=== PATIENT | female | born 1960 | race Caucasian/White ===

== ENCOUNTER 2018-01-21 08:54 | Outpatient (CLI) | payer OTHER ==
--- NOTE | 2018-01-21 13:36 | MRI ---
MRI BRAIN WITH AND WITHOUT IV CONTRAST: HISTORY: Senile degeneration of the brain, not elsewhere classified. FINDINGS: No evidence of infarct, hemorrhage, mass, midline shift, or abnormal extraaxial fluid collections is seen. The ventricular size is appropriate, and the basilar cisterns are patent. No abnormal post co ntrast enhancement is seen. The visualized paranasal sinuses and mastoid air cells are well aerated. IMPRESSION: Normal exam. POS: [facility]
== END 2018-01-21 08:55 | disposition home or self-care (01) ==
LOC: MRI 08:54
PROVIDERS: ATTEND Psychiatry & Neurology Neurology
DX: G31.1 Senile degeneration of brain, not elsewhere classified (principal)
CPT/HCPCS: 70553

== ENCOUNTER 2018-03-23 13:18 | Inpatient (IN) | payer OTHER ==
[2018-03-23 13:37] LABS: #Basophils 0.1 thou/uL (0.0-0.2); #Lymphocytes 3.5 thou/uL (1.20-3.40); #Monocytes 0.8 thou/uL (0.11-0.59); #Neutrophils 7.3 thou/uL (1.40-6.50); %Basophils 1.2 % (0.0-1.0); %Eosinophils 0.4 % (0.0-10.0); %Lymphocytes 29.5 % (21.0-51.0); %Neutrophils 61.8 % (42.0-75.0); Hemoglobin 14.6 g/dL (12.0-16.0); Mean Corpuscular HGB CONC 34.8 g/dL (32.0-36.0); Mean Corpuscular Volume 97.7 fl (81.0-99.0); Mean Platelet Volume 5.5 fL (7.4-10.4); Platelet Count 252 thou/uL (130-400); RBC Distribution Width 11.5 % (11.5-14.5); Red Blood Cell (RBC) Count 4.29 mill/uL (4.20-5.40); White Blood Cell (WBC) Count 11.7 thou/uL (4.8-10.8)
[2018-03-23 13:43] LABS: PTT 27.4 SEC (22.9-36.1); Prothrombin Time 13.4 SEC (12.0-14.7)
[2018-03-23 14:03] LABS: ALT (SGPT) 23 U/L (8-55); AST (SGOT) 23 U/L (5-34); Albumin 4.5 g/dL (3.5-5.0); Alkaline Phosphatase 67 U/L (40-150); Anion Gap 16 mmol/L (10-20); BUN (Urea Nitrogen) 11 mg/dL (9.8-20.1); Bilirubin, Total 0.3 mg/dL (0.2-1.2); Calc. Creatinine Clearance 0 mL/min (70-130); Calcium 9.2 mg/dL (7.8-10.44); Carbon Dioxide 22 mmol/L (22-29); Chloride 103 mmol/L (98-107); Estimated GFR-MDRD 68; Globulin 2.6 g/dL (2.4-3.5); Glucose 132 mg/dL (70-105); Potassium 4.1 mmol/L (3.5-5.1); Protein, Total 7.1 g/dL (6.0-8.3); Sodium 137 mmol/L (136-145)
[2018-03-23 14:06] LABS: Troponin I Less than 0.010 ng/mL (< 0.028)
--- NOTE | 2018-03-23 14:10 | CT ---
CT HEAD NONCONTRAST: HISTORY: Right-sided weakness. Left arm drift. COMPARISON: 03/31/16. FINDINGS: There is no evidence of acute intracranial hemorrhage or infarct. The ventricles appear normal in si ze, shape, and position. There is no mass effect or shift of midline structures. Visualized paranas al sinuses remain well aerated. IMPRESSION: No acute intracranial abnormalities are demonstrated on noncontrast CT head. Findings were called to Dr. Krishna in the emergency department at 1336 hours. CODE CR POS: [facility]
--- NOTE | 2018-03-23 14:22 | CT ---
CT ANGIOGRAM BRAIN WITH IV CONTRAST AND 3D RECONSTRUCTIONS CT ANGIOGRAM NECK WITH IV CONTRAST AND 3D RECONSTRUCTIONS: Date: 03/23/18 HISTORY: Right-sided weakness and slurred speech, as well as facial droop. Left arm drift. Last seen normal at 1145 hours. FINDINGS: CT ANGIOGRAM NECK: Thoracic aortic arch is normal in caliber. There is normal arrangement of the great vessels at the ao rtic arch. The innominate artery, as well as bilateral subclavian arteries are patent. Bilateral comm on carotid arteries, as well as bilateral internal and external carotid arteries are patent. There is only minimal vascular calcification seen involving the most proximal internal carotid arteries bilat erally. There are patent and codominant bilateral vertebral arteries. Basilar artery is patent. Degenerative changes are noted in the spine. Bilateral submandibular and parotid glands have a normal CT appearance. There is partial visualization of median sternotomy wires. The visualized upper lobes are clear. IMPRESSION: 1. Patent bilateral internal carotid arteries. 2. Patent bilateral vertebral arteries. CT ANGIOGRAM BRAIN: The bilateral middle cerebral and anterior cerebral, as well as posterior cerebral arteries are paten t. The codominant distal bilateral vertebral arteries are patent. Basilar artery is patent. There is no focal stenosis or branch occlusion seen. No aneurysm is seen within the limitations of th e technique of this exam. There are minimal vascular calcifications seen in the region of the carotid siphons. IMPRESSION: No focal stenosis or branch occlusion is seen involving the [place] or vertebrobasilar syste m. Above findings discussed with Dr. Krishna in the emergency department on 03/23/18 at 1342 hours. CODE CR. POS: [facility]
[2018-03-23] MEDS ORDERED: ISOVUE-370 76%-LOCM 1 ML ONE (14:37)
[2018-03-23 15:23] LABS: Bilirubin Negative (Negative); Blood, Urine Negative (Negative); Clarity CLEAR (Clear); Glucose, Urine (Dipstick) Negative (Negative); Leukocyte Negative (Negative); Nitrite Negative (Negative); Protein, Urine (Dipstick) Negative (Neg-Trace); Urobilinogen 0.2 mg/dL (0.2-1.0); pH, Urine 7.5 (5.0-9.0)
[2018-03-23] MEDS ORDERED: Ondansetron HCl/PF 4 MG/2 ML Vial SLOW IVP PRN (16:27)
[2018-03-23] MEDS ORDERED: hydrALAZINE 20 MG/ML VIAL SLOW IVP PRN (16:46)
[2018-03-23] MEDS ORDERED: Labetalol HCl 100 MG/20 ML VIAL SLOW IVP PRN (16:47)
[2018-03-23] MEDS: Acetaminophen 1,000 MG in Premix Bag 1 BAG IVPB PRN (17:04)
--- NOTE | 2018-03-23 18:48 | CON ---
DATE OF CONSULTATION: 03/23/2018 SERVICE: Pulmonary Medicine. REASON FOR CONSULTATION: ICU patient. HISTORY OF PRESENT ILLNESS: The patient is a 57-year-old white female with past medical history significant for nothing. She is in her usual state of health when she had an abrupt onset of neurologic changes. She never reports having similar features. She presented to the Emergency Department. She had some left-sided facial droop and left-sided weakness As such, she ended up getting some TPA. She seems to be improving ever so slightly. She denies any current fevers, chills, nausea, vomiting, or chest pain. Otherwise, her vital signs are under good control and she has no specific complaints. She indicates that so she has swallowing her saliva without difficulties. PAST MEDICAL HISTORY: 1. Coronary artery disease. 2. Hypertension. 3. Dyslipidemia. 4. Chronic back pain. 5. Anxiety disorder. PAST SURGICAL HISTORY: 1. Spinal surgery. 2. Coronary bypass graft. 3. Appendectomy. 4. Cholecystectomy. FAMILY HISTORY: Noncontributory. SOCIAL HISTORY: The patient denies any alcohol, tobacco, or illicit drug use. She has no exposure to chemicals, dust asbestos or tuberculosis. REVIEW OF SYSTEMS: General, head, ears, eyes, nose, throat, cardiovascular, respiratory, GI, , musculoskeletal, neurologic and skin is negative except as mentioned in the HPI. ALLERGIES: PENICILLIN, SULFA. MEDICATIONS: List of her inpatient medications were reviewed. No specific updates were made at this time. PHYSICAL EXAMINATION: VITAL SIGNS: Afebrile, pulse 66, blood pressure 132/75, respirations 14, saturation 98% on room air. GENERAL: The patient is awake and alert. She is in no apparent distress. LUNGS: Decent air entry. HEART: Normal rate, regular. ABDOMEN: Soft, nontender, nondistended. Bowel sounds are positive. MUSCULOSKELETAL: No cyanosis or clubbing. There is no pitting in the bilateral lower extremities. NEUROLOGIC: Functional. LABORATORY DATA: WBC 11.7, hemoglobin 14.6, platelets 252,000. INR 1.0. Basic metabolic profile and liver function studies are otherwise unremarkable. Cardiac enzymes are negative. Urinalysis is unremarkable. IMAGING: CTA of the [place] demonstrates patent bilateral internal carotid artery and basilar systems is no focal stenosis or occlusion is identified. CT of the brain demonstrates no acute intracranial abnormality. ASSESSMENT: 1. Spell, status post TPA administration. 2. Coronary artery disease. 3. Hypertension. 4. Dyslipidemia. PLAN: We will continue some of the patient's home medications, but these will need to be on hold until she can pass her swallow evaluation. For the time being, we will give her some IV fluids. She remain in n.p.o. Otherwise, supportive measures will be continued. P.r.n. blood pressure medications will be provided for anything less than 160 given that she is already tolerating, quite comfortably her current blood pressure. Pulmonary will continue to follow while she remains in this location, but from my perspective, she will be stable for transition to the floor tomorrow. 70 minutes have been devoted to this patient in various activities. I personally reviewed all imaging studies and laboratory data noted within this document. For fifty percent of this time, I was interacting with the patient at the bedside or coordinating care with the care team. For the remainder of the time I was immediately available to the patient in the hospital unit. NICKOLAS
[2018-03-23] MEDS ORDERED: [UNRECOGNIZED DRUG - REMARK] FS SCH (19:00)
[2018-03-23 19:47] VITALS: BMI 27.9
[2018-03-23] MEDS: Sodium Chloride 0.45% 1,000 ML IV SCH (20:17)
--- NOTE | 2018-03-23 20:52 | CON ---
DATE OF CONSULTATION: 03/23/2018 REFERRING PROVIDER: Dr. Sherwood. REASON FOR CONSULTATION: Acute left-sided weakness. HISTORY OF PRESENT ILLNESS: Ms. Oviedo is a pleasant 57-year-old female, who has been consu lted for evaluation of acute onset left-sided weakness. The patient reports that around 11:30 a.m. t his morning, she suddenly started noticing left side numbness and weakness. She also noted right fac ial droop. She felt her vision on her left side was dark, which prompted her to present to the [facility] Emergency Room. On arrival here, she was evaluated by ER physician who had immediately called the stroke alert. She had a CT head without contrast and CT angiogram of the head and neck along wit h CT perfusion scan done. The CT angiogram of the head and neck did not show any intracranial or ext racranial vascular abnormality since the perfusion was not done. She met the criteria for IV TPA and she had presented within the window. She was given IV TPA. She reports that her symptoms hav e been improving since being in to the hospital, she feels much better than what she presented with. She denies headache, chest pain, palpitation, numbness, tingling, dysarthria or dysphagia. PAST MEDICAL HISTORY: Significant for hypertension, coronary artery disease, history of atrial fibri llation, hyperlipidemia, chronic back pain, cervical spondylosis. PAST SURGICAL HISTORY: Significant for cardiac ablation in 2009, kidney stone surgery with stent kayy cement, appendectomy, coronary artery bypass graft surgery, cholecystectomy, x1, hernia rep air, hysterectomy, lumbar spine surgery. Otherwise, unremarkable. CURRENT MEDICATIONS: Please review MAR. ALLERGIES: Include PENICILLIN and SULFA DRUGS. FAMILY HISTORY: Noncontributory. SOCIAL HISTORY: She denies smoking, alcohol use, or illicit drug use. REVIEW OF SYSTEMS: As mentioned, which was negative. PHYSICAL EXAMINATION: VITAL SIGNS: Blood pressure 135/76, pulse of 67, temperature of 98.3, respirations of 16, O2 sats of 97% on room air. GENERAL: Well-developed, well-nourished female, in no apparent distress. RESPIRATORY: Clear to auscultation bilaterally. CARDIOVASCULAR: Regular rate and rhythm. NEUROLOGIC: Mental status: The patient is awake, alert, oriented x3. Speech and language: Fluent speech. Cranial nerves: Pupils are 3 mm and reactive. Visual loredo are intact. External muscles are intact. No nystagmus is noted. Face is symmetric. Tongue and uvula midline. Motor exam showed normal tone and bulk with a 5/5 strength in both upper and lower extremities. There is slight givea way weakness on the left upper extremity. She was able to hold her arms outstretched without any dri ft. There was no drift noted in the lower extremities as well. Sensory: Sensation is intact and sy mmetric. Deep tendon reflexes 2+ reflexes in both upper and lower extremities. Babinski: Plantar r esponses flexion bilaterally. Coordination intact to [id number] and finger tapping bilateral ly. LABORATORY DATA: Labs are reviewed, which included CBC, coag panel, CMP, urinalysis, which is signif icant for white cell count of 11.7, otherwise unremarkable. IMAGING STUDIES: CT head without contrast was reviewed, which showed no acute intracranial abnormali ty. CT angiogram of the head and neck were reviewed, which showed no acute intracranial or extracran ial vascular abnormality. IMPRESSION: 1. Left-sided weakness, possible right middle cerebral artery distribution ischemic infarct, status post IV TPA. 2. Hypertension. 3. Coronary artery disease. 4. Hyperlipidemia. ASSESSMENT AND PLAN: Ms. Oviedo is a pleasant 57-year-old female, who presented with an acu te onset left-sided weakness. She is now status post IV TPA. At this time, I would recommend keepin g close monitoring her neurological function over the next 24 hours. I will recommend avoiding any f orm of antiplatelet or anticoagulation therapy at least 24 hours post-TPA. I will recommend obtainin g MRI brain without contrast and echocardiogram in the morning. I will recommend consulting PT, OT, Speech Therapy. She may be started on aspirin 325 mg daily after the 24 hours of post-TPA. Continue current medical management. Thank you for consultation.
[2018-03-23] MEDS: Promethazine HCl 25 MG/ML VIAL SLOW IVP PRN (21:23)
[2018-03-23] MEDS ORDERED: Polyethylene Glycol 3350 17 GM Packet PO PRN (23:50)
[2018-03-23] MEDS ORDERED: Senokot 8.6 MG TAB PO PRN (23:51)
[2018-03-24] MEDS: Promethazine HCl 25 MG/ML VIAL SLOW IVP PRN (02:01)
[2018-03-24] MEDS: Acetaminophen 1,000 MG in Premix Bag 1 BAG IVPB PRN ×2 (02:02→08:31)
[2018-03-24 04:36] LABS: #Basophils 0.1 thou/uL (0.0-0.2); #Eosinphils 0.1 thou/uL (0.0-0.7); #Lymphocytes 4.6 thou/uL (1.20-3.40); #Monocytes 0.9 thou/uL (0.11-0.59); #Neutrophils 4.3 thou/uL (1.40-6.50); %Basophils 0.7 % (0.0-1.0); %Eosinophils 0.8 % (0.0-10.0); %Monocytes 9.3 % (0.0-10.0); %Neutrophils 43.1 % (42.0-75.0); Hemoglobin 13.8 g/dL (12.0-16.0); Mean Corpuscular HGB CONC 34.1 g/dL (32.0-36.0); Mean Corpuscular Hemoglobin 33.6 pg (27.0-31.0); Mean Corpuscular Volume 98.4 fl (81.0-99.0); Mean Platelet Volume 5.8 fL (7.4-10.4); Platelet Count 243 thou/uL (130-400); RBC Distribution Width 11.5 % (11.5-14.5); White Blood Cell (WBC) Count 9.9 thou/uL (4.8-10.8)
[2018-03-24 05:02] LABS: Cardiac Risk 2.8 (Less than 4.5)
[2018-03-24] MEDS: Gabapentin 300 MG CAP PO SCH ×4 (05:12→22:01)
--- NOTE | 2018-03-24 06:38 | HP ---
DATE OF ADMISSION: 03/23/2018 REASON FOR ADMISSION AND CHIEF COMPLAINT: Facial droop and left-sided weakness. HISTORY OF PRESENT ILLNESS: Ms. Oviedo is a 57-year-old female with past medical history of coronary artery disease, status post CABG; hypertension ; anxiety disorder; chronic back pain; atrial fibrillation; started having slurred speech this morning. The patient is unable to get words out and felt weak on the left side as well. She did not have any chest pain or shortness of breath, no headache, nausea, some dizziness. She was in the recliner and managed to pull close to the door and opened it and slid over there and waited for the ambulance after calling them. EMS felt her weakness gotten worse on the way to the hospital. In the ER, the patient felt to have acute ischemic CVA. The patient received tPA and was admitted to the CCU for close monitoring. Currently, the patient's speech is clear, though she still has some left-sided weakness. PAST MEDICAL HISTORY: 1. Hypertension. 2. Coronary artery disease, status post CABG. 3. Anxiety disorder. 4. Chronic back pain. 5. Hyperlipidemia. 6. History of atrial fibrillation. PAST SURGICAL HISTORY: 1. Status post spinal surgery. 2. Status post coronary artery bypass graft. 3. Status post appendectomy. 4. Status post cholecystectomy. CURRENT MEDICATIONS: The patient is on Xanax 0.5 mg t.i.d., aspirin 81 mg daily , vitamin D daily 2000 units, Plavix 75 mg daily, diltiazem 120 mg daily, estradiol 0.5 mg daily, Lasix 40 mg daily, gabapentin 600 mg t.i.d., [place] p.r.n., omeprazole 20 mg b.i.d., MiraLax daily, KCl 10 mEq daily p.r.n., Seroquel 50 mg at bedtime, Ranexa 1000 mg b.i.d., Crestor 20 mg daily, Effexor XR 150 daily. ALLERGIES: NKDA. FAMILY HISTORY: Nothing of interest. SOCIAL HISTORY: pt lives alone. no h/o of smoking and alcohol intake REVIEW OF SYSTEMS: Cardiovascular: No chest pain. No shortness of breath. Respiratory: No fever or cough. Gastrointestinal: No nausea or vomiting. No abdominal pain. Genitourinary: No dysuria or hematuria. Central Nervous System: Has left-sided weakness and facial drooping on the left. PHYSICAL EXAMINATION: GENERAL: The patient is alert, awake, oriented x3. VITAL SIGNS: Temperature 98, pulse 64, respirations 20, blood pressure 120/60. HEENT: Head is normocephalic, atraumatic. Pupils are equal and reactive to light. Nasopharynx is pale and dry. Hard and soft palate, no lesions seen. SKIN: Skin turgor decreased. NECK: Supple. No JVD. LUNGS: Bilateral air entry present. No rales, no rhonchi. HEART: S1, S2 regular. ABDOMEN: Soft, no distention, no tenderness. Normal bowel sounds present. RECTAL: Deferred. CENTRAL NERVOUS SYSTEM: The patient is alert, awake, oriented x3, no evidence of facial droop now. Motor system power 5/5 in the right upper and lower extremities and 4/5 in left upper and lower extremities. Deep tendon reflexes 2 + bilaterally. Plantar downgoing. Sensory intact. LABORATORY AND X-RAY FINDINGS: CBC shows WBC 11.7, hemoglobin 14, hematocrit 42 , platelets 252. Metabolic panel: Sodium 137, potassium 4, chloride 103, CO2 of 22, BUN 11, creatinine 0.86, glucose 132, prothrombin time 13, INR 1. Urinalysis negative. CT of the brain negative. CT angio, neck, as well as [place] unremarkable. EKG showed normal sinus rhythm, no acute ST-T wave changes seen. ASSESSMENT: 1. Left-sided weakness, possible right MCA cerebrovascular accident. 2. Severe anxiety disorder. 3. Hypertension. 4. Coronary artery disease, status post coronary artery bypass graft. 5. Hyperlipidemia. 6. History of depression as well. 7. Chronic back pain. PLAN: 1. Vital signs q.4 hours. 2. Activity as tolerated. 3. Allergies: NKDA. 4. IV fluids: Half normal at 80 mL per hour. 5. Diet: N.p.o. except medicines. 6. Continue home medications. 7. Phenergan 12.5 IVP q.6 hours p.r.n. 8. Neurology consult. 9. MRI of the brain tomorrow. NICKOLAS
[2018-03-24] MEDS ORDERED: Ondansetron HCl/PF 4 MG/2 ML Vial IVP PRN (08:39)
[2018-03-24] MEDS ORDERED: Ondansetron ODT 4 MG TAB SL PRN (08:39)
[2018-03-24] MEDS: Clopidogrel Bisulfate 75 MG TAB PO SCH (08:39)
[2018-03-24] MEDS: Aspirin 81 mg Enteric Coated Tablet PO SCH (08:39)
[2018-03-24] MEDS: Estradiol 1 MG TAB PO SCH (08:44)
[2018-03-24] MEDS: Venlafaxine HCl XR 150 MG CAP PO SCH (08:46)
[2018-03-24] MEDS: ALPRAZolam 0.5 MG TAB PO PRN ×2 (08:46→20:36)
[2018-03-24] MEDS: Sodium Chloride 0.45% 1,000 ML IV SCH (08:52)
[2018-03-24] MEDS: HYDROcodone/Acetaminophen 10/325 mg Tablet PO PRN ×2 (08:54→22:01)
[2018-03-24] MEDS ORDERED: ICOSAPENT ETHYL 2 GM PO SCH ×2 (09:00)
--- NOTE | 2018-03-24 11:04 | PRG ---
DATE OF SERVICE: 03/24/2018 SERVICE: Pulmonary medicine. INTERVAL HISTORY: Patient is doing fine from a respiratory standpoint. Left extremities of upper an d lower extremity is improving in strength. She denies any current chest pain, nausea, vomiting. Raya barnes has no facial droop today. She has yet to be evaluated by Speech Pathology. PHYSICAL EXAMINATION: VITAL SIGNS: Afebrile, pulse 73, blood pressure 141/81, respirations 14, saturation 95% on room air. GENERAL: Patient is awake and alert, no apparent distress. LUNGS: Decent air entry without prolonged expiratory phase, wheezing, rhonchi, or crackles. HEART: Normal rate, regular. ABDOMEN: Soft, nontender, nondistended. Bowel sounds are positive. MUSCULOSKELETAL: No cyanosis or clubbing. No pitting in the bilateral lower extremities. NEUROLOGIC: Less functional today. LABORATORY DATA: WBC 9.9, hemoglobin 13.8, platelets 243,000. Cholesterol includes triglycerides of 150, total cholesterol 124, LDL 45, HDL 44. Urinalysis is unremarkable. ASSESSMENT: 1. Spell, status post TPA. 2. Coronary artery disease. 3. Dyslipidemia. 4. Hypertension. PLAN: We will get the MRI. The patient can transition out of the ICU to the stroke unit. When she goes out to the floor, no further requirements for inpatient Pulmonary or Critical Care opinion, I wi ll sign off. Please call with additional questions or concerns moving forward.
[2018-03-24] MEDS ORDERED: Rosuvastatin 20 MG TAB PO SCH (21:00)
[2018-03-25] MEDS: Gabapentin 300 MG CAP PO SCH ×2 (06:43→14:29)
[2018-03-25] MEDS: ALPRAZolam 0.5 MG TAB PO PRN (08:19)
[2018-03-25] MEDS: Venlafaxine HCl XR 150 MG CAP PO SCH (09:09)
[2018-03-25] MEDS: Estradiol 1 MG TAB PO SCH (09:09)
[2018-03-25] MEDS: Aspirin 81 mg Enteric Coated Tablet PO SCH (09:10)
[2018-03-25] MEDS: Clopidogrel Bisulfate 75 MG TAB PO SCH (09:10)
--- NOTE | 2018-03-25 10:44 | MRI ---
MRI BRAIN WITHOUT CONTRAST: HISTORY: Right-sided weakness. Slurred speech. Facial droop. Left arm drift. COMPARISON: 01/21/2018 FINDINGS: No restricted diffusion is seen. No evidence of infarct, hemorrhage, midline shift, or abnormal extr aaxial fluid collections noted. The ventricular size is normal, and the basilar cisterns are patent. The visualized paranasal sinuses and mastoid air cells are well aerated. IMPRESSION: Normal exam. POS: [facility]
[2018-03-25 16:19] VITALS: BP 121/84; TEMP 98.3
--- NOTE | 2018-03-26 14:00 | DIS ---
DATE OF ADMISSION: 03/23/2018 DATE OF DISCHARGE: 03/25/2018 ADMITTING DIAGNOSES: 1. Left-sided weakness, rule out cerebrovascular accident. 2. Severe anxiety disorder. 3. Hypertension. 4. Coronary artery disease, status post coronary artery bypass graft. 5. Hyperlipidemia. 6. History of depression. 7. Chronic back pain. FINAL DIAGNOSES: 1. Left-sided weakness, markedly resolved. No evidence of cerebrovascular accident. MRI of the bra in was normal. 2. Severe anxiety disorder. 3. Hypertension. 4. Coronary artery disease, status post coronary artery bypass graft. 5. Hyperlipidemia. 6. History of depression. 7. Chronic back pain. There is no previous history of atrial fibrillation as per the records. BRIEF SUMMARY OF HOSPITAL COURSE: Ms. Oviedo is a 57-year-old, female admitted because of s udden onset of left-sided weakness. The patient initially was given TPA and thought to have acute st roke. The patient's weakness completely resolved the following day. Initial CT scan was negative. The patient was seen by Dr. Feng for Neurology suggested an MRI of the brain to evaluate if there is any stroke. The patient underwent an MRI. MRI showed no evidence of any infarction or hemorrhage. It was normal. Her neurologist said the patient did not have a CVA at all. It could be anxiety diso rder with conversion reaction, which resulted in her left-sided weakness and this got resolved comple tely. The patient is ambulating well now, back to herself, and the patient also did not have atrial fibrillation according to the previous record and according to the patient, it was mentioned by [facility] admission record. The patient is discharged. At the time of discharge, she was stable. Her piper l signs were stable. Lungs were clear. Heart sounds regular. Abdomen is soft, nontender. Bowel so unds present. DISCHARGE MEDICATIONS: Include Crestor 20 mg daily, Ranexa 1000 mg b.i.d., mg b.i.d., Xanax 0 .5 t.i.d., Seroquel 50 mg at bedtime, gabapentin 600 q.8 hours, aspirin 81 mg, daily, estradiol 0.5 mg daily, MiraLax 17 grams daily, omeprazole 20 mg b.i.d., promethazine 25 mg p.o. daily p.r.n., vitamin D 2000 units daily, Effexor XR 150 mg daily, Lasix 40 mg daily, [place] p.r.n., Plavix 75 mg d aily, diltiazem 120 mg daily, Imdur 30 mg daily, spironolactone 25 mg daily, levothyroxine 50 mcg paresh ly. FOLLOWUP: The patient will come for a followup in 2 weeks.
== END 2018-03-25 17:12 | disposition home or self-care (01) | DRG 62 ==
LOC: ERS 13:18 → CCU 14:15 → 2SE 03-24 15:32
PROVIDERS: ADMIT Internal Medicine; ATTEND Internal Medicine
DX: I63.9 Cerebral infarction, unspecified (principal); G81.94 Hemiplegia, unspecified affecting left nondominant side; F41.9 Anxiety disorder, unspecified; I10 Essential (primary) hypertension; I25.10 Atherosclerotic heart disease of native coronary artery without angina pectoris; E78.5 Hyperlipidemia, unspecified; F32.9 Major depressive disorder, single episode, unspecified; Z95.1 Presence of aortocoronary bypass graft; M54.9 Dorsalgia, unspecified; G89.29 Other chronic pain; M47.892 Other spondylosis, cervical region; Z90.49 Acquired absence of other specified parts of digestive tract; Z90.710 Acquired absence of both cervix and uterus
CPT/HCPCS: 36415; 70450; 70496; 70498; 70551; 80053; 80061; 81003; 82553; 84484; 85025; 85610; 85730; 93005; 94760; 96365; 99292; G8978-GP-CK; G8979-GP-CI; G8987-GO-CI; G8988-GO-CI; G8989-GO-CI; G8996-GN-CH; G8997-GN-CH; J0131; J2550; J2997; J3490; Q0162

== ENCOUNTER 2019-03-21 02:01 | Observation (INO) | payer OTHER ==
[2019-03-21] MEDS ORDERED: Nitroglycerin 0.4 MG TAB (25 Tab Bottle) ONE (02:28)
[2019-03-21 02:30] LABS: #Basophils 0.1 thou/uL (0.0-0.2); #Eosinphils 0.1 thou/uL (0.0-0.7); #Lymphocytes 4.1 thou/uL (1.20-3.40); #Monocytes 0.8 thou/uL (0.11-0.59); #Neutrophils 4.5 thou/uL (1.40-6.50); %Basophils 1.1 % (0.0-1.0); %Eosinophils 1.1 % (0.0-10.0); %Neutrophils 46.7 % (42.0-75.0); Hemoglobin 13.3 g/dL (12.0-16.0); Mean Corpuscular HGB CONC 32.4 g/dL (32.0-36.0); Mean Platelet Volume 5.2 fL (7.4-10.4); Platelet Count 246 thou/uL (130-400); RBC Distribution Width 11.8 % (11.5-14.5); Red Blood Cell (RBC) Count 4.04 mill/uL (4.20-5.40); White Blood Cell (WBC) Count 9.6 thou/uL (4.8-10.8)
[2019-03-21] MEDS ORDERED: Fentanyl 100 MCG/2 ML VIAL ONE (02:37)
[2019-03-21 02:44] LABS: ALT (SGPT) 10 U/L (8-55); AST (SGOT) 11 U/L (5-34); Albumin 4.2 g/dL (3.5-5.0); Alkaline Phosphatase 56 U/L (40-150); Anion Gap 13 mmol/L (10-20); BUN (Urea Nitrogen) 12 mg/dL (9.8-20.1); Bilirubin, Total 0.3 mg/dL (0.2-1.2); CK (CPK) 101 U/L (29-168); Calc. Creatinine Clearance 0 mL/min (70-130); Calcium 9.1 mg/dL (7.8-10.44); Carbon Dioxide 25 mmol/L (22-29); Chloride 107 mmol/L (98-107); Estimated GFR-MDRD 68; Globulin 2.4 g/dL (2.4-3.5); Glucose 122 mg/dL (70-105); Lipase 27 U/L (8-78); Potassium 3.5 mmol/L (3.5-5.1); Protein, Total 6.6 g/dL (6.0-8.3); Sodium 141 mmol/L (136-145)
[2019-03-21] MEDS ORDERED: Ondansetron PF 4 MG/2 ML Vial ONE (02:44)
[2019-03-21] MEDS ORDERED: Aspirin Chewable 81 MG TAB ONE (04:39)
[2019-03-21 06:12] VITALS: BMI 29.9
[2019-03-21 06:49] LABS: Troponin I Less than 0.010 ng/mL (< 0.028)
[2019-03-21 08:06] VITALS: BP 107/60; TEMP 98.4
[2019-03-21 08:43] LABS: Troponin I Less than 0.010 ng/mL (< 0.028)
--- NOTE | 2019-03-21 08:47 | CT ---
CTA chest with contrast with 3-D volume rendering CTA abdomen/pelvis with contrast with 3-D volume rendering FINDINGS/IMPRESSION: Final report is in agreement with preliminary interpretation provided above. No evidence of acute aortic aneurysm or dissection.
--- NOTE | 2019-03-21 08:57 | RAD ---
Exam: Chest one view HISTORY:Pain Comparison: 05/23/2017 FINDINGS: Lungs: No new consolidation. Stable appearing Cardiac silhouette:Stable Pulmonary vessels: Normal Pleural Spaces: Clear Pneumothorax: None Osseous abnormalities: None of acuity. IMPRESSION: Stable chest
[2019-03-21] MEDS ORDERED: ADENOSINE 60 MG/20 ML VIAL ONE (09:44)
--- NOTE | 2019-03-21 13:50 | NM ---
Nuclear medicine myocardial perfusion evaluation CLINICAL HISTORY: Chest pain Right pharmaceutical: 27 mCi and 10 mCi technetium 99 M sestamibi IV administered at stress and rest FINDINGS: No significant fixed or reversible scintigraphic defects of the left ventricular garay are identified. Evaluation of the gated imaging reveals wall motion and contractility with a calculated LVEF of 75%. IMPRESSION: Normal myocardial perfusion evaluation, without evidence of ischemia or scar. Normal left ventricular systolic function.
[2019-03-21] MEDS ORDERED: Gabapentin 300 MG CAP PO SCH (15:00)
[2019-03-21] MEDS ORDERED: ICOSAPENT 2 GM PO SCH (17:00)
[2019-03-21] MEDS ORDERED: Donepezil HCl 10 MG TAB PO SCH (21:00)
[2019-03-21] MEDS ORDERED: busPIRone HCl 10 MG TAB PO SCH (21:00)
[2019-03-21] MEDS ORDERED: Rosuvastatin 20 MG TAB PO SCH (21:00)
[2019-03-22] MEDS ORDERED: Levothyroxine Sodium 50 MCG TAB PO SCH (06:00)
[2019-03-22] MEDS ORDERED: Spironolactone 25 MG TAB PO SCH (08:00)
[2019-03-22] MEDS ORDERED: DULoxetine 60 MG CAP PO SCH (09:00)
[2019-03-22] MEDS ORDERED: Famotidine 20 MG TAB PO SCH (09:00)
[2019-03-22] MEDS ORDERED: Furosemide 40 MG TAB PO SCH (09:00)
[2019-03-22] MEDS ORDERED: Estradiol 1 MG TAB PO SCH (09:00)
--- NOTE | 2019-03-22 09:16 | HP ---
CHIEF COMPLAINT: Chest pain. HISTORY OF PRESENT ILLNESS: Ms. Oviedo is a 58-year-old female with past medical history of coronary artery disease, anxiety disorder, who came to the ER with chest pain, woke up in the night because of chest pressure as well as racing heart, she did not have any dizziness or diaphoresis and she did have some shortness of breath and nausea. The pain lasted until she came to the ER, where she was given fentanyl after which the pain got relieved. In view of her risk factors, the patient is being admitted to rule out myocardial infarction. Did not have any headache, dizziness. No fever. PAST MEDICAL HISTORY: 1. Hypertension. 2. Coronary artery disease, status post CABG. 3. Anxiety disorder. 4. Chronic back pain. 5. Hyperlipidemia. 6. History of atrial fibrillation. PAST SURGICAL HISTORY: 1. Status post coronary artery bypass graft. 2. Status post spinal surgery. 3. Status post appendectomy. 4. Status post cholecystectomy. CURRENT MEDICATIONS: The patient is on; 1. BuSpar 10 mg b.i.d. 2. Diltiazem 180 mg daily. 3. Aricept 10 mg daily. 4. Cymbalta 60 mg daily. 5. Estradiol 0.5 mg daily. 6. Pepcid 20 mg daily. 7. Lasix 40 mg daily. 8. Gabapentin 600 mg t.i.d. 9. Imdur 30 mg daily. 10. Levothyroxine 50 mcg daily. 11. Vascepa b.i.d. 2 g. 12. Seroquel 50 b.i.d. 13. Ranexa 1000 mg b.i.d. 14. Crestor 20 mg daily. 15. Spironolactone 25 mg daily. ALLERGIES: NKDA. FAMILY HISTORY: Nothing contributory. SOCIAL HISTORY: The patient lives with daughter. No history of smoking. No history of alcohol. REVIEW OF SYSTEMS: CARDIOVASCULAR: Chest pain. Shortness of breath. RESPIRATORY: No fever or cough. GASTROINTESTINAL: Has nausea. No vomiting. CENTRAL NERVOUS SYSTEM: No headache. No dizziness. PHYSICAL EXAMINATION: GENERAL: The patient is alert, awake, and oriented x3. VITAL SIGNS: Temperature 98, pulse 75, respiratory rate 20, and blood pressure 110/60. HEENT: Head is normocephalic and atraumatic. Pupils are equal and reactive. Nasopharynx is pale and dry. Hard and soft palate. No lesions. SKIN: Turgor decreased. NECK: Supple. No JVD. LUNGS: Bilateral air entry with no rales and no rhonchi. HEART: S1 and S2, regular. ABDOMEN: Soft. No distention. No tenderness. Normal bowel sounds. RECTAL: No symptoms. CENTRAL NERVOUS SYSTEM: No focal deficit. LABORATORY DATA: CBC shows WBC 9.6, hemoglobin 13, hematocrit 41, platelets are 246. Metabolic panel; sodium 140, potassium 3.5, chloride 107, C02 26, creatinine 0.8, glucose 122. Chest x-ray negative. CT dissection protocol was negative. EKG, normal sinus rhythm, no acute ST-T changes seen. ASSESSMENT: 1. Chest pain, rule out myocardial infarction. 2. Hypertension. 3. Coronary artery disease, status post coronary artery bypass graft. 4. Anxiety disorder. 5. Chronic pain. 6. Hyperlipidemia. PLAN: 1. Vital signs q.4 hours. 2. Activity as tolerated. 3. Allergies: NKDA. 4. Hep-Lock. 5. Troponin q.8 hours x2. 6. Continue home medications. 7. We will obtain a stress test. Job ID: [id number]
--- NOTE | 2019-03-22 13:42 | DIS ---
DATE OF ADMISSION: 03/21/2019 DATE OF DISCHARGE: 03/21/2019 ADMITTING DIAGNOSES: 1. Chest pain, rule out myocardial infarction. 2. Hypertension. 3. Coronary artery disease, status post coronary artery bypass graft. 4. Hyperlipidemia. 5. Anxiety disorder. 6. Chronic pain. FINAL DIAGNOSES: 1. Chest pain. No evidence of acute myocardial infarction. Negative Cardiolite stress test. 2. Hypertension. 3. Coronary artery disease, status post coronary artery bypass graft. 4. Hyperlipidemia. 5. Chronic pain. 6. Anxiety disorder. BRIEF SUMMARY OF HOSPITAL COURSE: Ms. Oviedo is a 58-year-old female admitted because of chest pressure, nausea, and shortness of breath. The patient was admitted to rule out myocardial infarction. In view of her risk factors, the patient had a troponin I drawn which was less than 0.010. She underwent Cardiolite stress test and reported a negative for ischemia. The patient's chest pain also completely resolved while in the hospital. In view of that, the patient is being discharged to home. At the time of discharge, she was stable and vitals signs are stable. Lungs clear. Heart sounds are regular. Abdomen is soft. No tenderness. Bowel sounds present. DISCHARGE MEDICATIONS: Include, 1. Rosuvastatin which is Crestor 20 mg daily. 2. Ranexa 1000 mg b.i.d. 3. Seroquel 50 b.i.d. 4. Gabapentin 600 t.i.d. 5. Estradiol 0.5 mg daily. 6. Lasix 40 mg daily. 7. Imdur 30 mg daily. 8. Spironolactone 25 mg daily. 9. Levothyroxine 50 mcg daily. 10. Ranitidine 150 daily. 11. Aricept 10 mg daily. 12. vascepa 1 gm b.i.d. 13. Cymbalta 60 mg daily. 14. BuSpar 10 mg b.i.d. 15. Diltiazem 180 daily. FOLLOWUP: The patient will come for followup in 3 weeks. Job ID: [id number] MTDD
== END 2019-03-21 15:57 | disposition home or self-care (01) ==
LOC: SCSER 02:01 → 2SW 05:31
PROVIDERS: ADMIT Internal Medicine; ATTEND Internal Medicine
DX: R07.89 Other chest pain (principal); I25.10 Atherosclerotic heart disease of native coronary artery without angina pectoris; F41.9 Anxiety disorder, unspecified; I10 Essential (primary) hypertension; G89.29 Other chronic pain; M54.9 Dorsalgia, unspecified; E78.5 Hyperlipidemia, unspecified; I48.91 Unspecified atrial fibrillation; Z79.899 Other long term (current) drug therapy; Z88.0 Allergy status to penicillin; Z88.2 Allergy status to sulfonamides; Z95.1 Presence of aortocoronary bypass graft
CPT/HCPCS: 36415; 71045; 71275; 78452; 80053; 82550; 83690; 84484; 85025; 93005; 93017; 96374; 96375; A9500; J0153; J2405; J3010

== ENCOUNTER 2019-07-01 12:27 | Observation (INO) | payer OTHER ==
[2019-07-01 14:04] LABS: #Basophils 0.1 thou/uL (0.0-0.2); #Eosinphils 0.1 thou/uL (0.0-0.7); #Lymphocytes 3.4 thou/uL (1.20-3.40); #Monocytes 0.7 thou/uL (0.11-0.59); %Basophils 1.7 % (0.0-1.0); %Eosinophils 0.7 % (0.0-10.0); %Lymphocytes 40.9 % (21.0-51.0); %Monocytes 7.9 % (0.0-10.0); %Neutrophils 48.8 % (42.0-75.0); Hemoglobin 11.5 g/dL (12.0-16.0); Mean Corpuscular HGB CONC 34.8 g/dL (32.0-36.0); Mean Corpuscular Hemoglobin 36.3 pg (27.0-31.0); Platelet Count 259 thou/uL (130-400); RBC Distribution Width 11.1 % (11.5-14.5); Red Blood Cell (RBC) Count 3.17 mill/uL (4.20-5.40); White Blood Cell (WBC) Count 8.3 thou/uL (4.8-10.8)
--- NOTE | 2019-07-01 14:15 | RAD ---
PORTABLE CHEST: Date: 07/01/19 HISTORY: Chest pain. COMPARISON: 03/21/19. FINDINGS: Heart size within normal limits for portable technique with postop sternotomy changes. The aorta is t ortuous. The lungs are clear of infiltrates. IMPRESSION: No active intrathoracic disease. Stable chest. POS: [facility]
[2019-07-01 14:19] LABS: ALT (SGPT) 8 U/L (8-55); AST (SGOT) 11 U/L (5-34); Albumin 3.7 g/dL (3.5-5.0); Alkaline Phosphatase 45 U/L (40-150); Anion Gap 8 mmol/L (10-20); BUN (Urea Nitrogen) 8 mg/dL (9.8-20.1); Bilirubin, Total 0.3 mg/dL (0.2-1.2); Calc. Creatinine Clearance 0 mL/min (70-130); Calcium 8.1 mg/dL (7.8-10.44); Carbon Dioxide 25 mmol/L (22-29); Chloride 111 mmol/L (98-107); Estimated GFR-MDRD 77; Globulin 1.9 g/dL (2.4-3.5); Glucose 106 mg/dL (70-105); Lipase 16 U/L (8-78); Potassium 4.3 mmol/L (3.5-5.1); Protein, Total 5.6 g/dL (6.0-8.3); Sodium 140 mmol/L (136-145)
[2019-07-01 17:27] LABS: Troponin I Less than 0.010 ng/mL (< 0.028)
[2019-07-01 18:57] VITALS: BMI 33.6
[2019-07-01 21:17] LABS: Troponin I Less than 0.010 ng/mL (< 0.028)
[2019-07-01] MEDS ORDERED: Nitroglycerin 0.4 MG TAB (25 Tab Bottle) SL PRN (22:27)
[2019-07-01] MEDS ORDERED: Melatonin 3 MG TAB PO PRN (22:28)
[2019-07-01] MEDS ORDERED: busPIRone HCl 10 MG TAB PO SCH (23:00)
[2019-07-01] MEDS ORDERED: Gabapentin 300 MG CAP PO SCH (23:00)
[2019-07-01] MEDS ORDERED: Donepezil HCl 10 MG TAB PO SCH (23:00)
[2019-07-01] MEDS ORDERED: Rosuvastatin 20 MG TAB PO SCH (23:00)
[2019-07-02] MEDS: Levothyroxine Sodium 50 MCG TAB PO SCH (06:56)
--- NOTE | 2019-07-02 08:14 | HP ---
CHIEF COMPLAINT: Chest pain and irregular heartbeat, and skipped beats. HISTORY OF PRESENT ILLNESS: Ms. Oviedo is a 59-year-old female with past medical history of coronary artery disease, status post CABG, came with chest pain and skipped beats. The patient states she noted having some chest pain and shortness of breath and her heart beat was skipping. She did not have any dizziness. No nausea, or vomiting. No headache. No syncope. Despite her taking rest, arrhythmia did not resolve. Chest pain also did not resolve. The pain is more like tightness and heaviness that radiates to left shoulder and left side. EMS was called. EMS found the patient with chest pain, gave nitroglycerin. The patient became hypotensive. Chest pain improved. In the ER, the patient was evaluated. She was given IV fluid bolus because of hypotension initially, which was 79/50, but improved to 100/60. The patient is admitted for further evaluation and management. PAST MEDICAL HISTORY: 1. Coronary artery disease, status post CABG. 2. Hypertension. 3. Hyperlipidemia. 4. Anxiety disorder. 5. Chronic back pain. 6. History of atrial fibrillation. PAST SURGICAL HISTORY: 1. Status post CABG. 2. Status post ablation for atrial flutter. 3. Status post spinal surgery. 4. Status post appendectomy. 5. Status post cholecystectomy. CURRENT MEDICATIONS: The patient is on; 1. Nitroglycerin p.r.n. 2. Aspirin 81 mg daily. 3. Melatonin 5 mg at bedtime p.r.n. 4. Plavix 75 mg daily. 5. Seroquel 50 mg b.i.d. 6. Estradiol 0.5 daily. 7. Lasix 40 mg daily. 8. BuSpar 15 b.i.d. 9. Ranexa 1000 b.i.d. 10. Vascepa 2 mg b.i.d. 11. Gabapentin 600 mg t.i.d. 12. Cymbalta 60 mg daily. 13. Levothyroxine 50 mcg daily. 14. Aricept 10 mg daily. 15. Spironolactone 25 mg daily. 16. Isosorbide mononitrate 30 mg daily. 17. Diltiazem 180 mg daily. ALLERGIES: PENICILLIN AND SULFA. FAMILY HISTORY: Nothing contributory. SOCIAL HISTORY: The patient lives with daughter. No history of smoking. No history of alcohol. REVIEW OF SYSTEMS: Unremarkable except for chest tightness and irregular heartbeat. PHYSICAL EXAMINATION: VITAL SIGNS: Temperature 98, pulse HEENT: Head is normocephalic and atraumatic. Pupils are equal and reactive. Nasopharynx is pale and dry. Hard and soft palate. No lesions. SKIN: Turgor decreased. NECK: Supple. No JVD. LUNGS: Bilateral air entry. No rales. No rhonchi. HEART: S1 and S2 regular. ABDOMEN: Soft. No distention. No tenderness. Normal bowel sounds present. CENTRAL NERVOUS SYSTEM: No focal deficits. EXTREMITIES: No edema. LABORATORY DATA: CBC shows WBC 8.3, hemoglobin 11, hematocrit 33, platelets 259. Metabolic panel; sodium 140, potassium 4.3, chloride 111, CO2 25, BUN 8, creatinine 0.7, glucose 106. Troponin-I was less than 0.010. EKG showed atrial fibrillation with a heart rate of 60. No acute ST-T wave changes. Chest x-ray negative. ASSESSMENT: 1. Chest pain and tightness, rule out myocardial infarction. 2. Atrial fibrillation, paroxysmal. 3. Hypertension. 4. Coronary artery disease, status post coronary artery bypass grafting. 5. Hyperlipidemia. 6. Anxiety disorder. PLAN: 1. Vital signs q.4 hours. 2. Activities as tolerated. 3. Allergies to penicillin and sulfa. 4. Hep-Lock. 5. Diet: Cardiac. 6. Continue home medications. 7. Troponin-I q.6 hours x2. 8. Cardiology consult. Job ID: [id number] MTDD
[2019-07-02] MEDS ORDERED: Clopidogrel Bisulfate 75 MG TAB PO SCH (09:00)
[2019-07-02] MEDS: Estradiol 1 MG TAB PO SCH (10:11)
[2019-07-02] MEDS: Gabapentin 300 MG CAP PO SCH ×2 (10:11→16:35)
[2019-07-02] MEDS: Famotidine 20 MG TAB PO SCH (10:12)
[2019-07-02] MEDS: busPIRone HCl 10 MG TAB PO SCH ×2 (10:13→20:13)
[2019-07-02] MEDS: Aspirin 81 mg Enteric Coated Tablet PO SCH (10:14)
[2019-07-02] MEDS: Furosemide 40 MG TAB PO SCH (10:14)
[2019-07-02] MEDS: DULoxetine 60 MG CAP PO SCH (10:14)
[2019-07-02] MEDS: Spironolactone 25 MG TAB PO SCH (10:14)
[2019-07-02] MEDS ORDERED: Apixaban 5 MG TAB PO SCH ×2 (16:15→21:00)
[2019-07-02] MEDS: ICOSAPENT ETHYL (VASCEPA) PO SCH ×4 (17:58→20:15)
--- NOTE | 2019-07-02 18:45 | CON ---
DATE OF CONSULTATION: 07/02/2019 REASON FOR CONSULTATION: Chest pain and atrial fibrillation. HISTORY OF PRESENT ILLNESS: Ms. Dona Oviedo is a very pleasant 59-year-old woman with history of coronary artery disease with a long history of chest pain as is outlined extensively in the chart. The patient was brought to the hospital on this occasion because she had rapid palpitations. The heart rhythm started beating erratically, and then it started going rapidly fast and slow, and the patient felt very poorly with that. She did not really have chest pain, just felt the palpitations, and it is very distressing to her. She called an ambulance and was brought here. She was found to be in atrial fibrillation. She is back in sinus rhythm now. PAST MEDICAL HISTORY: 1. Coronary artery disease, please see extensive notes. She has had bypass surgery to the LAD and diagonal. The internal mammary to the LAD eventually closed due to competitive flow, but the diagonal graft was perfusing adequately. She had a stress test early this year. 2. She had a history of atrial flutter ablation after her bypass surgery. 3. She had a recent stroke, treated with tPA successfully. MEDICATIONS: Prior to admission: 1. Aspirin. 2. Plavix. 3. Diltiazem. 4. Statin. 5. Lovaza. 6. Gabapentin. 7. Levothyroxine. 8. Spironolactone. ALLERGIES: 1. PENICILLIN. 2. SULFA. REVIEW OF SYSTEMS: CONSTITUTIONAL: No significant weight gain or loss. VISION: No changes. HEARING: No changes. PULMONARY: No cough or wheezing. GASTROINTESTINAL: No nausea, vomiting, or diarrhea. SKIN: No rashes. NEUROLOGIC: No unilateral weakness or numbness. PSYCHIATRIC: No unusual depression or anxiety. PHYSICAL EXAMINATION: GENERAL: This is a pleasant 59-year-old woman, in no distress. VITAL SIGNS: Blood pressure 97/67, pulse 67. LUNGS: Clear. CARDIAC: Normal S1, normal S2. ABDOMEN: Soft and nontender. She is obese. EXTREMITIES: No clubbing. No cyanosis. No edema. SKIN: Warm and dry. PSYCHIATRIC: Mood and affect are normal. NEUROLOGIC: Grossly normal. PERTINENT LABORATORY DATA: Hemoglobin is 11.5. Troponin less than 0.010. Liver function tests are normal. In the emergency room note, the patient was noted to have atrial fibrillation. Initially, her heart rate was not fast; in fact, it was slow. There is an EKG in the chart of atrial fibrillation with a slow ventricular response of 60. ASSESSMENT: 1. Paroxysmal atrial fibrillation. 2. Coronary artery disease, appears stable. Recent negative stress test. 3. Recent stroke. In retrospect, I think this may well have been embolic. 4. When she has an atrial fibrillation now, the rate is relatively low on the diltiazem, but her symptoms are not well controlled with that. PLAN: 1. Stop diltiazem. 2. Start Multaq tomorrow morning. 3. Stop Plavix. 4. Substitute Eliquis. 5. She should be able to go home tomorrow afternoon after lunch if she is doing well on this regimen. As mentioned, we will start Multaq and Eliquis and stop the Plavix and diltiazem. Job ID: [id number]
[2019-07-02] MEDS ORDERED: Gabapentin 300 MG CAP PO SCH (21:00)
[2019-07-02] MEDS ORDERED: Rosuvastatin 20 MG TAB PO SCH (21:00)
[2019-07-02] MEDS ORDERED: Donepezil HCl 10 MG TAB PO SCH (21:00)
[2019-07-03] MEDS: Levothyroxine Sodium 50 MCG TAB PO SCH (04:49)
[2019-07-03] MEDS ORDERED: Apixaban 5 MG TAB PO SCH (09:00)
[2019-07-03] MEDS ORDERED: Dronedarone HCl 400 MG TAB PO SCH (09:00)
[2019-07-03] MEDS: busPIRone HCl 10 MG TAB PO SCH (09:01)
[2019-07-03] MEDS: Spironolactone 25 MG TAB PO SCH (09:01)
[2019-07-03] MEDS: DULoxetine 60 MG CAP PO SCH (09:02)
[2019-07-03] MEDS: Estradiol 1 MG TAB PO SCH (09:03)
[2019-07-03] MEDS: Furosemide 40 MG TAB PO SCH (09:04)
[2019-07-03] MEDS: Gabapentin 300 MG CAP PO SCH ×2 (09:04→14:55)
[2019-07-03] MEDS: Famotidine 20 MG TAB PO SCH (09:04)
[2019-07-03] MEDS: ICOSAPENT ETHYL (VASCEPA) PO SCH (09:05)
[2019-07-03] MEDS: Aspirin 81 mg Enteric Coated Tablet PO SCH (09:09)
[2019-07-03 15:37] VITALS: BP 102/66; TEMP 98.2
== END 2019-07-03 16:20 | disposition home or self-care (01) ==
LOC: ERS 12:27 → 2SW 16:01
PROVIDERS: ADMIT Internal Medicine; ATTEND Internal Medicine
DX: I48.0 Paroxysmal atrial fibrillation (principal); I25.10 Atherosclerotic heart disease of native coronary artery without angina pectoris; I95.9 Hypotension, unspecified; I10 Essential (primary) hypertension; E78.5 Hyperlipidemia, unspecified; F41.9 Anxiety disorder, unspecified; G89.29 Other chronic pain; M54.9 Dorsalgia, unspecified; Z86.73 Personal history of transient ischemic attack (TIA), and cerebral infarction without residual deficits; Z79.02 Long term (current) use of antithrombotics/antiplatelets; Z79.82 Long term (current) use of aspirin; Z79.899 Other long term (current) drug therapy; Z88.0 Allergy status to penicillin; Z88.2 Allergy status to sulfonamides; Z95.1 Presence of aortocoronary bypass graft; Z98.890 Other specified postprocedural states
CPT/HCPCS: 36415; 71045; 80053; 83690; 84484; 85025; 93005; G0378

== ENCOUNTER 2021-03-18 11:08 | Emergency (ER) | payer OTHER ==
[2021-03-18] MEDS ORDERED: Acetaminophen 500 MG TAB ONE (12:47)
== END 2021-03-18 13:47 | disposition home or self-care (01) ==
LOC: ERS 11:08
DX: S93.402A Sprain of unspecified ligament of left ankle, initial encounter (principal); S83.92XA Sprain of unspecified site of left knee, initial encounter; E78.5 Hyperlipidemia, unspecified; E03.9 Hypothyroidism, unspecified; I48.91 Unspecified atrial fibrillation; I10 Essential (primary) hypertension; I25.10 Atherosclerotic heart disease of native coronary artery without angina pectoris; Z87.891 Personal history of nicotine dependence; Z79.82 Long term (current) use of aspirin; Z79.899 Other long term (current) drug therapy; Z79.01 Long term (current) use of anticoagulants; Z79.84 Long term (current) use of oral hypoglycemic drugs; Y93.6A Activity, physical games generally associated with school recess, summer camp and children; Y93.66 Activity, soccer
CPT/HCPCS: 70450

== ENCOUNTER 2022-09-12 13:05 | Observation (INO) | payer OTHER ==
[2022-09-12 13:49] LABS: #Eosinphils 0.1 thou/uL (0.0-0.7); #Lymphocytes 3.2 thou/uL (1.20-3.40); #Monocytes 0.9 thou/uL (0.11-0.59); #Neutrophils 4.9 thou/uL (1.40-6.50); %Basophils 0.5 % (0.0-1.0); %Eosinophils 0.7 % (0.0-10.0); %Lymphocytes 35.1 % (21.0-51.0); %Monocytes 9.6 % (0.0-10.0); %Neutrophils 54.1 % (42.0-75.0); Hemoglobin 11.9 g/dL (12.0-16.0); Mean Corpuscular HGB CONC 33.9 g/dL (32.0-36.0); Mean Corpuscular Hemoglobin 37.1 pg (27.0-31.0); Platelet Count 288 thou/uL (130-400); RBC Distribution Width 11.7 % (11.5-14.5); Red Blood Cell (RBC) Count 3.21 mill/uL (4.20-5.40); White Blood Cell (WBC) Count 9.1 thou/uL (4.8-10.8)
[2022-09-12 14:09] LABS: ALT (SGPT) 17 U/L (8-55); AST (SGOT) 21 U/L (5-34); Albumin 3.8 g/dL (3.4-4.8); Alkaline Phosphatase 64 U/L (40-110); Anion Gap 12 mmol/L (10-20); BUN (Urea Nitrogen) 9 mg/dL (9.8-20.1); Bilirubin, Total 0.4 mg/dL (0.2-1.2); Calc. Creatinine Clearance 0 mL/min (70-130); Calcium 8.3 mg/dL (7.8-10.44); Carbon Dioxide 27 mmol/L (23-31); Chloride 107 mmol/L (98-107); Estimated GFR 74; Globulin 2.2 g/dL (2.4-3.5); Glucose 143 mg/dL (80-115); Lipase 8 U/L (8-78); Potassium 4.3 mmol/L (3.5-5.1); Sodium 142 mmol/L (136-145)
[2022-09-12] MEDS ORDERED: Acetaminophen 325 MG TAB PO PRN (15:57)
[2022-09-12 16:45] LABS: SARS-CoV-2 NAA Rapid Test Not Detected (NotDetected)
[2022-09-12] MEDS ORDERED: Nitroglycerin 0.4 MG TAB (25 Tab Bottle) SL PRN (18:00)
[2022-09-12 18:27] LABS: Troponin I Less than 0.010 ng/mL (< 0.028)
[2022-09-12] MEDS ORDERED: Acetaminophen 325 MG TAB ONE (18:31)
[2022-09-12] MEDS ORDERED: Melatonin 3 MG TAB PO PRN (18:36)
[2022-09-12 20:21] VITALS: BMI 37.2
[2022-09-12 20:46] LABS: Troponin I Less than 0.010 ng/mL (< 0.028)
[2022-09-12] MEDS ORDERED: Rosuvastatin 20 MG TAB PO SCH (21:00)
[2022-09-12] MEDS ORDERED: Donepezil HCl 10 MG TAB PO SCH (21:00)
[2022-09-12] MEDS: busPIRone HCl 10 MG TAB PO SCH (21:19)
[2022-09-12] MEDS: Apixaban 5 MG TAB PO SCH (21:19)
[2022-09-12] MEDS ORDERED: Eszopiclone [Lunesta] 2 MG PO SCH (22:45)
[2022-09-13] MEDS ORDERED: Levothyroxine Sodium 50 MCG TAB PO SCH (06:00)
[2022-09-13] MEDS ORDERED: Icosapent Ethyl 1 GM CAPSULE PO SCH (08:00)
[2022-09-13] MEDS: busPIRone HCl 10 MG TAB PO SCH (08:29)
[2022-09-13] MEDS ORDERED: DULoxetine 60 MG CAP PO SCH (09:00)
[2022-09-13] MEDS ORDERED: Estradiol 1 MG TAB PO SCH (09:00)
[2022-09-13] MEDS ORDERED: Furosemide 40 MG TAB PO SCH (09:00)
[2022-09-13] MEDS ORDERED: Spironolactone 25 MG TAB PO SCH (09:00)
[2022-09-13] MEDS: Apixaban 5 MG TAB PO SCH (11:10)
[2022-09-13 11:58] VITALS: BP 118/66; TEMP 97.9
[2022-09-13] MEDS ORDERED: Zolpidem Tartrate 5 MG TAB PO SCH (21:00)
[2022-09-13] MEDS ORDERED: Eszopiclone [Lunesta] 2 MG PO SCH (21:00)
[2022-09-13] MEDS ORDERED: Atorvastatin Calcium 40 MG TAB PO SCH (21:00)
== END 2022-09-13 13:56 | disposition home or self-care (01) ==
LOC: ERS 13:05 → ERHOLD 15:21 → 2SW 19:51
PROVIDERS: ADMIT Internal Medicine; ATTEND Internal Medicine
DX: R07.9 Chest pain, unspecified (principal); I48.0 Paroxysmal atrial fibrillation; I10 Essential (primary) hypertension; I25.10 Atherosclerotic heart disease of native coronary artery without angina pectoris; I44.7 Left bundle-branch block, unspecified; E03.9 Hypothyroidism, unspecified; E66.01 Morbid (severe) obesity due to excess calories; Z68.37 Body mass index [BMI] 37.0-37.9, adult; Z79.01 Long term (current) use of anticoagulants; Z79.890 Hormone replacement therapy; Z79.899 Other long term (current) drug therapy; Z88.0 Allergy status to penicillin; Z88.2 Allergy status to sulfonamides; Z95.1 Presence of aortocoronary bypass graft; Z20.822 Contact with and (suspected) exposure to COVID-19
CPT/HCPCS: 36415; 71045; 80053; 83690; 84484; 85025; 93005; 94760; G0378; U0002

== ENCOUNTER 2023-03-31 16:48 | Emergency (ER) | payer OTHER ==
[2023-03-31 17:34] LABS: #Basophils 0.1 thou/uL (0.0-0.2); #Monocytes 1.1 thou/uL (0.11-0.59); #Neutrophils 9.8 thou/uL (1.40-6.50); %Basophils 0.4 % (0.0-1.0); %Eosinophils 0.1 % (0.0-10.0); %Lymphocytes 15.6 % (21.0-51.0); %Monocytes 8.1 % (0.0-10.0); %Neutrophils 75.8 % (42.0-75.0); Hemoglobin 12.9 g/dL (12.0-16.0); Mean Corpuscular HGB CONC 34.3 g/dL (32.0-36.0); Mean Corpuscular Hemoglobin 38.2 pg (27.0-31.0); Mean Platelet Volume 6.3 fL (7.4-10.4); Platelet Count 303 10x3/uL (130-400); Red Blood Cell (RBC) Count 3.37 mill/uL (4.20-5.40); White Blood Cell (WBC) Count 12.9 10x3/uL (4.8-10.8)
[2023-03-31 18:06] LABS: ALT (SGPT) 53 U/L (8-55); AST (SGOT) 230 U/L (5-34); Alkaline Phosphatase 53 U/L (40-110); Anion Gap 18 mmol/L (10-20); BUN (Urea Nitrogen) 18 mg/dL (9.8-20.1); Bilirubin, Total 0.9 mg/dL (0.2-1.2); Calc. Creatinine Clearance 0 mL/min (70-130); Calcium 9.1 mg/dL (7.8-10.44); Carbon Dioxide 25 mmol/L (23-31); Chloride 98 mmol/L (98-107); Estimated GFR 47; Globulin 2.5 g/dL (2.4-3.5); Glucose 92 mg/dL (80-115); Potassium 4.7 mmol/L (3.5-5.1); Protein, Total 6.5 g/dL (5.8-8.1); Sodium 136 mmol/L (136-145)
[2023-03-31 21:16] LABS: Clarity Turbid (Clear); Leukocyte Negative Leu/uL (Negative); Specific Gravity, Urine 1.016 (1.002-1.036); pH, Urine 5.5 (5.0-9.0)
[2023-03-31 21:17] LABS: Bacteria/HPF 2+ HPF (None Seen); Bilirubin Negative (Negative); Blood, Urine 3+ (Negative); Glucose, Urine (Dipstick) Normal (Negative); Ketone, Urine 40 mg/dL (Negative); Mucous/LPF Rare LPF (<2+); Nitrite Negative (Negative); Protein, Urine (Dipstick) 30 mg/dL (Neg-Trace); Squamous Epithelial 0-3 HPF (0-3); Urobilinogen Normal mg/dL (Less than 2)
== END 2023-03-31 22:50 | disposition home or self-care (01) ==
LOC: ERS 16:48
DX: S00.83XA Contusion of other part of head, initial encounter (principal); N39.0 Urinary tract infection, site not specified; I25.10 Atherosclerotic heart disease of native coronary artery without angina pectoris; E78.5 Hyperlipidemia, unspecified; I10 Essential (primary) hypertension; E03.9 Hypothyroidism, unspecified; Z87.891 Personal history of nicotine dependence; Z79.899 Other long term (current) drug therapy; W19.XXXA Unspecified fall, initial encounter
CPT/HCPCS: 36415; 51701; 70450; 72125; 80053; 81003; 81015; 84484; 85025; 93005; 94760

== ENCOUNTER 2023-06-29 22:40 | Observation (INO) | payer OTHER ==
[~2023-06-29 22:40] MED LIST: Iopamidol-370 76% 500 ML MDV (1 ML CHARGE) ONE
[2023-06-29 23:10] LABS: #Basophils 0.1 thou/uL (0.0-0.2); #Eosinphils 0.1 thou/uL (0.0-0.7); #Monocytes 1.3 thou/uL (0.11-0.59); #Neutrophils 5.4 thou/uL (1.40-6.50); %Basophils 0.5 % (0.0-1.0); %Eosinophils 0.5 % (0.0-10.0); %Monocytes 11.5 % (0.0-10.0); %Neutrophils 49.4 % (42.0-75.0); Hemoglobin 13.9 g/dL (12.0-16.0); Mean Corpuscular Hemoglobin 37.8 pg (27.0-31.0); Mean Corpuscular Volume 111.1 fl (78.0-98.0); Mean Platelet Volume 8.9 fL (7.4-10.4); Platelet Count 266 10x3/uL (130-400); Red Blood Cell (RBC) Count 3.68 mill/uL (4.20-5.40)
[2023-06-29 23:25] LABS: INR-International Normal Ratio 1.4; PTT 33.7 sec (22.9-36.1); Prothrombin Time 18.1 sec (12.0-14.7)
[2023-06-29 23:30] LABS: CellaVision Operator ID lab.abc; Macrocytosis SLIGHT = 6-15 cells HPF (0-5); Platelet Adequacy Comment Platelets Normal
[2023-06-30 00:21] LABS: Bacteria/HPF None Seen HPF (None Seen); Bilirubin Negative (Negative); Blood, Urine Negative (Negative); CAUTI Indications for Culture Alt mental st,lethar; Clarity Clear (Clear); Glucose, Urine (Dipstick) 30 mg/dL (Negative); Ketone, Urine 40 mg/dL (Negative); Leukocyte Negative Leu/uL (Negative); Nitrite Negative (Negative); Protein, Urine (Dipstick) Negative (Neg-Trace); RBC/HPF 0-3 HPF (0-3); Squamous Epithelial 0-3 HPF (0-3); Urobilinogen Normal mg/dL (Less than 2); WBC/HPF 0-3 HPF (0-3); pH, Urine 5.5 (5.0-9.0)
[2023-06-30 00:23] LABS: Specific Gravity, Urine 1.046 (1.002-1.036)
[2023-06-30 00:24] LABS: Urine Culture Reflex No No
[2023-06-30 02:02] LABS: Chloride 94 mmol/L (98-107); Potassium 4.5 mmol/L (3.5-5.1); Sodium 133 mmol/L (136-145)
[2023-06-30 02:03] LABS: Calcium 9.3 mg/dL (7.8-10.44)
[2023-06-30 02:04] LABS: Globulin 2.6 g/dL (2.4-3.5); Glucose 114 mg/dL (80-115); Protein, Total 6.6 g/dL (5.8-8.1)
[2023-06-30 02:05] LABS: Anion Gap 21 mmol/L (10-20); Bilirubin, Total 0.4 mg/dL (0.2-1.2); Carbon Dioxide 23 mmol/L (23-31)
[2023-06-30 02:06] LABS: Alkaline Phosphatase 56 U/L (40-110)
[2023-06-30 02:07] LABS: Calc. Creatinine Clearance 0 mL/min (70-130); Estimated GFR 97
[2023-06-30 02:08] LABS: BUN (Urea Nitrogen) 13 mg/dL (9.8-20.1)
[2023-06-30 02:09] LABS: ALT (SGPT) 26 U/L (8-55); AST (SGOT) 33 U/L (5-34)
[2023-06-30 02:10] LABS: CK (CPK) 159 U/L (29-168)
[2023-06-30] MEDS ORDERED: Electrolyte Replacement Protocol 1 EACH FS PRN (03:15)
[2023-06-30] MEDS ORDERED: Senokot S 8.6-50 MG TAB PO PRN (03:16)
[2023-06-30] MEDS ORDERED: Calcium Carbonate 500 MG ChewTAB PO PRN (03:16)
[2023-06-30] MEDS ORDERED: Ondansetron ODT 4 MG TAB PO PRN (03:16)
[2023-06-30 04:26] LABS: #Basophils 0.1 thou/uL (0.0-0.2); #Monocytes 0.9 thou/uL (0.11-0.59); #Neutrophils 5.3 thou/uL (1.40-6.50); %Basophils 0.6 % (0.0-1.0); %Eosinophils 0.4 % (0.0-10.0); %Lymphocytes 33.3 % (21.0-51.0); %Monocytes 9.5 % (0.0-10.0); %Neutrophils 55.3 % (42.0-75.0); Hemoglobin 14.2 g/dL (12.0-16.0); Mean Corpuscular HGB CONC 34.1 g/dL (32.0-36.0); Mean Corpuscular Hemoglobin 37.5 pg (27.0-31.0); Mean Corpuscular Volume 109.8 fl (78.0-98.0); Mean Platelet Volume 8.8 fL (7.4-10.4); Platelet Count 280 10x3/uL (130-400); RBC Distribution Width 13.8 % (11.5-14.5); Red Blood Cell (RBC) Count 3.79 mill/uL (4.20-5.40); White Blood Cell (WBC) Count 9.7 10x3/uL (4.8-10.8)
[2023-06-30 04:46] VITALS: BMI 32.0
[2023-06-30 04:47] LABS: Anion Gap 18 mmol/L (10-20); BUN (Urea Nitrogen) 12 mg/dL (9.8-20.1); Calc. Creatinine Clearance 130 mL/min (70-130); Calcium 9.4 mg/dL (7.8-10.44); Carbon Dioxide 25 mmol/L (23-31); Chloride 93 mmol/L (98-107); Estimated GFR 98; Glucose 103 mg/dL (80-115); Potassium 4.2 mmol/L (3.5-5.1); Sodium 132 mmol/L (136-145)
[2023-06-30] MEDS: Levothyroxine Sodium 50 MCG TAB PO SCH (05:03)
[2023-06-30] MEDS ORDERED: Famotidine 20 MG TAB ONE (08:35)
[2023-06-30] MEDS ORDERED: Furosemide 40 MG TAB ONE (08:35)
[2023-06-30] MEDS: Famotidine 20 MG TAB PO SCH ×2 (08:42→21:00)
[2023-06-30] MEDS: Furosemide 40 MG TAB PO SCH (08:42)
[2023-06-30] MEDS ORDERED: Levothyroxine Sodium 50 MCG TAB PO SCH (08:45)
[2023-06-30] MEDS ORDERED: Ondansetron ODT 4 MG TAB ONE (08:46)
[2023-06-30] MEDS ORDERED: dilTIAZem CD 300 MG CAP PO SCH (09:00)
[2023-06-30] MEDS: dilTIAZem CD 180 MG CAP PO SCH (09:42)
[2023-06-30] MEDS: busPIRone HCl 10 MG TAB PO SCH ×3 (09:44→21:00)
[2023-06-30] MEDS: Apixaban 5 MG TAB PO SCH ×2 (09:45→21:01)
[2023-06-30] MEDS: DULoxetine 60 MG CAP PO SCH (09:45)
[2023-06-30] MEDS: Gabapentin 300 MG CAP PO SCH ×3 (09:47→21:00)
[2023-06-30] MEDS: Spironolactone 25 MG TAB PO SCH (09:48)
[2023-06-30] MEDS: Acetaminophen 325 MG TAB PO PRN (16:29)
[2023-06-30] MEDS: Ezetimibe 10 MG TAB PO SCH (21:00)
[2023-06-30] MEDS: Atorvastatin Calcium 40 MG TAB PO SCH (21:00)
[2023-06-30] MEDS: Donepezil HCl 10 MG TAB PO SCH (21:01)
[2023-07-01] MEDS: Levothyroxine Sodium 50 MCG TAB PO SCH (06:24)
[2023-07-01] MEDS: Apixaban 5 MG TAB PO SCH ×2 (08:57→20:16)
[2023-07-01] MEDS: busPIRone HCl 10 MG TAB PO SCH ×3 (08:57→20:16)
[2023-07-01] MEDS: Famotidine 20 MG TAB PO SCH ×2 (08:58→20:16)
[2023-07-01] MEDS: Furosemide 40 MG TAB PO SCH (08:58)
[2023-07-01] MEDS: Gabapentin 300 MG CAP PO SCH ×3 (08:58→20:15)
[2023-07-01] MEDS: dilTIAZem CD 180 MG CAP PO SCH (08:59)
[2023-07-01] MEDS: DULoxetine 60 MG CAP PO SCH (08:59)
[2023-07-01] MEDS: Spironolactone 25 MG TAB PO SCH (09:00)
[2023-07-01] MEDS ORDERED: Sodium Chloride 0.9% 1,000 ML IV SCH (10:15)
[2023-07-01] MEDS: Acetaminophen 325 MG TAB PO PRN (13:05)
[2023-07-01 14:16] LABS: Troponin I Less than 0.010 ng/mL (< 0.028)
[2023-07-01 18:26] LABS: Magnesium 1.8 mg/dL (1.6-2.6); Phosphorus 4.4 mg/dL (2.3-4.7)
[2023-07-01 20:14] VITALS: BP 125/79; TEMP 98.3
[2023-07-01] MEDS: Ezetimibe 10 MG TAB PO SCH (20:16)
[2023-07-01] MEDS: Donepezil HCl 10 MG TAB PO SCH (20:16)
[2023-07-01] MEDS: Atorvastatin Calcium 40 MG TAB PO SCH (20:22)
== END 2023-07-01 21:40 ==
LOC: ERS 22:40 → ERHOLD 06-30 02:36 → 2SE 06-30 14:39
PROVIDERS: ADMIT Student in an Organized Health Care Education/Training Program; ATTEND Internal Medicine
DX: R53.1 Weakness (principal); I07.1 Rheumatic tricuspid insufficiency; I48.91 Unspecified atrial fibrillation; I10 Essential (primary) hypertension; E03.9 Hypothyroidism, unspecified; I25.10 Atherosclerotic heart disease of native coronary artery without angina pectoris; E78.5 Hyperlipidemia, unspecified; R29.90 Unspecified symptoms and signs involving the nervous system; R29.6 Repeated falls; Z88.0 Allergy status to penicillin; Z88.2 Allergy status to sulfonamides; Z79.899 Other long term (current) drug therapy; Z79.01 Long term (current) use of anticoagulants; Z90.49 Acquired absence of other specified parts of digestive tract; Z95.5 Presence of coronary angioplasty implant and graft; Z90.710 Acquired absence of both cervix and uterus; Z79.890 Hormone replacement therapy
CPT/HCPCS: 36415; 70450; 70496; 70498; 70551; 80053; 81001; 82550; 83735; 84100; 84484; 85025; 85610; 85730; 93005; 93010; 93306; 95712; 95819; 95957; G0378; J7050; Q0162; Q9967

== ENCOUNTER 2023-07-11 12:17 | Outpatient (CLI) | payer OTHER ==
[2023-07-11 14:01] LABS: Hematocrit 44.6 % (34.9-44.5); Hemoglobin 15.3 g/dL (12.0-15.5); Mean Corpuscular HGB CONC 34.3 g/dL (32.0-36.0); Mean Corpuscular Hemoglobin 37.1 pg (27.0-33.0); Mean Corpuscular Volume 108.3 fl (81.6-98.3); Mean Platelet Volume 8.9 fl (7.4-10.4); Platelet Count 276 10x3/uL (150-450); RBC Distribution Width 13.3 % (11.5-14.5); Red Blood Cell (RBC) Count 4.12 10x6/uL (3.90-5.03); White Blood Cell (WBC) Count 11.9 10x3/uL (3.5-10.5)
[2023-07-11 14:14] LABS: PTT 24.1 sec (22.0-33.0); Prothrombin Time 10.3 sec (9.5-12.1)
[2023-07-11 14:16] LABS: Anion Gap 19 mmol/L (10-20); BUN (Urea Nitrogen) 11 mg/dL (9.8-20.1); Calc. Creatinine Clearance 0 mL/min (70-130); Calcium 9.5 mg/dL (7.8-10.44); Carbon Dioxide 29 mmol/L (23-31); Chloride 96 mmol/L (98-107); Estimated GFR 98; Glucose 141 mg/dL (80-115); Potassium 3.5 mmol/L (3.5-5.1); Sodium 140 mmol/L (136-145)
== END 2023-07-11 12:18 | disposition home or self-care (01) ==
LOC: LABBT 12:17
PROVIDERS: ATTEND Neurological Surgery
DX: Z01.812 Encounter for preprocedural laboratory examination (principal); M47.12 Other spondylosis with myelopathy, cervical region
CPT/HCPCS: 80048; 85027; 85610; 85730

== ENCOUNTER 2023-07-14 07:51 | Inpatient (IN) | payer OTHER ==
[2023-07-11 13:04] VITALS: BMI 30.7
[2023-07-14] MEDS ORDERED: Vasopressin 20 UNITS/ML VIAL ONE (09:49)
[2023-07-14] MEDS ORDERED: SUGAMMADEX SODIUM 200 MG/2 ML VIAL ONE (09:49)
[2023-07-14] MEDS ORDERED: fentaNYL 50 mcg/mL 1 mL Vial ONE (09:49)
[2023-07-14] MEDS ORDERED: Famotidine/PF 20 mg/2ml Vial ONE (09:49)
[2023-07-14] MEDS ORDERED: Clindamycin/D5W 600 mg/50 ml Premix Bag ONE (10:05)
[2023-07-14] MEDS ORDERED: LevoFLOXacin 500 mg/D5W 100 ML BAG ONE (10:05)
[2023-07-14] MEDS ORDERED: Lidocaine 1% PF 5 ML VIAL ONE (10:18)
[2023-07-14] MEDS ORDERED: PHENYLEPHRINE-NS 100 MCG/ML 10 ML SYRINGE ONE (10:18)
[2023-07-14] MEDS ORDERED: Dexamethasone 20 MG/5 ML VIAL ONE (10:18)
[2023-07-14] MEDS ORDERED: Ondansetron PF 4 MG/2 ML Vial ONE (10:18)
[2023-07-14] MEDS ORDERED: Ketorolac Tromethamine 30 MG/ML VIAL ONE (10:18)
[2023-07-14] MEDS ORDERED: ePHEDrine Sulfate 50 MG/10 ML VIAL ONE (10:18)
[2023-07-14] MEDS ORDERED: PROPOFOL 200 MG/20 ML VIAL ONE (10:18)
[2023-07-14] MEDS ORDERED: Rocuronium Bromide 10 MG/ML (10ML VIAL) ONE (10:18)
[2023-07-14] MEDS ORDERED: Metoclopramide HCl 10 MG/2 ML VIAL ONE (10:18)
[2023-07-14] MEDS ORDERED: Morphine 2 MG/ML VIAL SLOW IVP PRN (11:17)
[2023-07-14] MEDS ORDERED: Acetaminophen 325 MG TAB PO PRN (11:17)
[2023-07-14] MEDS ORDERED: Ondansetron PF 4 MG/2 ML Vial IVP PRN (11:17)
[2023-07-14] MEDS ORDERED: Milk Of Magnesia 30 ML UDCUP PO PRN (11:17)
[2023-07-14] MEDS ORDERED: Promethazine 25 MG TAB PO PRN (11:17)
[2023-07-14] MEDS ORDERED: diphenhydrAMINE 50 MG/ML VIAL IVP PRN (11:17)
[2023-07-14] MEDS ORDERED: traMADol HCl 50 MG TAB PO PRN (11:17)
[2023-07-14] MEDS ORDERED: Mag-Al 1200 mg/1200 mg/30 ML UDCUP PO PRN (11:17)
[2023-07-14] MEDS ORDERED: Melatonin 3 MG TAB PO PRN (11:24)
[2023-07-14] MEDS ORDERED: Fentanyl 250 MCG/5 ML VIAL ONE (11:30)
[2023-07-14] MEDS ORDERED: Ondansetron HCl/PF 4 MG/2 ML Vial IVP PRN (11:33)
[2023-07-14] MEDS ORDERED: Promethazine HCl 25 MG/ML VIAL IM PRN (11:33)
[2023-07-14] MEDS ORDERED: Cyclobenzaprine 10 MG TAB ONE (12:05)
[2023-07-14] MEDS ORDERED: Labetalol HCl 100 MG/20 ML VIAL ONE (12:15)
[2023-07-14] MEDS: Sodium Chloride 0.9% 1,000 ML IV SCH (13:45)
[2023-07-14] MEDS: Gabapentin 300 MG CAP PO SCH ×2 (15:01→20:25)
[2023-07-14] MEDS: busPIRone HCl 5 MG TAB PO SCH ×2 (15:01→20:24)
[2023-07-14] MEDS: Acetaminophen/Codeine 30-300mg Tablet PO PRN (18:04)
[2023-07-14] MEDS: Clindamycin/D5W 600 MG in Premix Bag 1 BAG IVPB SCH (18:05)
[2023-07-14] MEDS: Donepezil HCl 10 MG TAB PO SCH (20:25)
[2023-07-14] MEDS: Cyclobenzaprine 10 MG TAB PO PRN (20:29)
[2023-07-15] MEDS: Sodium Chloride 0.9% 1,000 ML IV SCH ×2 (03:16→09:06)
[2023-07-15] MEDS: Clindamycin/D5W 600 MG in Premix Bag 1 BAG IVPB SCH (03:25)
[2023-07-15] MEDS: Levothyroxine Sodium 50 MCG TAB PO SCH (05:53)
[2023-07-15] MEDS: Spironolactone 25 MG TAB PO SCH (09:00)
[2023-07-15] MEDS: busPIRone HCl 5 MG TAB PO SCH ×3 (09:03→20:51)
[2023-07-15] MEDS: Gabapentin 300 MG CAP PO SCH ×3 (09:03→20:52)
[2023-07-15] MEDS: DULoxetine 60 MG CAP PO SCH (09:04)
[2023-07-15] MEDS: Furosemide 20 MG TAB PO SCH (09:04)
[2023-07-15] MEDS: dilTIAZem SR 90 MG CAP PO SCH (09:59)
[2023-07-15] MEDS: Acetaminophen/Codeine 30-300mg Tablet PO PRN ×2 (11:34→18:16)
[2023-07-15] MEDS: Donepezil HCl 10 MG TAB PO SCH (20:52)
[2023-07-15] MEDS: Cyclobenzaprine 10 MG TAB PO PRN (20:52)
[2023-07-16] MEDS: Acetaminophen/Codeine 30-300mg Tablet PO PRN ×4 (01:08→17:14)
[2023-07-16] MEDS: Sodium Chloride 0.9% 1,000 ML IV SCH ×2 (03:15→08:52)
[2023-07-16] MEDS: Levothyroxine Sodium 50 MCG TAB PO SCH (06:10)
[2023-07-16] MEDS: Cyclobenzaprine 10 MG TAB PO PRN ×2 (08:51→20:12)
[2023-07-16] MEDS: Spironolactone 25 MG TAB PO SCH (08:51)
[2023-07-16] MEDS: Gabapentin 300 MG CAP PO SCH ×3 (08:51→20:09)
[2023-07-16] MEDS: dilTIAZem SR 90 MG CAP PO SCH (08:51)
[2023-07-16] MEDS: busPIRone HCl 5 MG TAB PO SCH ×3 (08:51→20:09)
[2023-07-16] MEDS: DULoxetine 60 MG CAP PO SCH (08:51)
[2023-07-16] MEDS: Furosemide 20 MG TAB PO SCH (08:52)
[2023-07-16] MEDS: Donepezil HCl 10 MG TAB PO SCH (20:09)
[2023-07-17] MEDS: Acetaminophen/Codeine 30-300mg Tablet PO PRN ×3 (01:37→11:19)
[2023-07-17] MEDS: Sodium Chloride 0.9% 1,000 ML IV SCH (05:55)
[2023-07-17] MEDS: Levothyroxine Sodium 50 MCG TAB PO SCH (06:47)
[2023-07-17] MEDS: Spironolactone 25 MG TAB PO SCH (08:34)
[2023-07-17] MEDS: busPIRone HCl 5 MG TAB PO SCH ×2 (08:34→14:33)
[2023-07-17] MEDS: DULoxetine 60 MG CAP PO SCH (08:34)
[2023-07-17] MEDS: Gabapentin 300 MG CAP PO SCH ×2 (08:35→14:33)
[2023-07-17] MEDS: Furosemide 20 MG TAB PO SCH (08:35)
[2023-07-17 09:01] VITALS: TEMP 97.7
[2023-07-17] MEDS: dilTIAZem SR 90 MG CAP PO SCH (09:58)
[2023-07-17 16:50] VITALS: BP 98/67
== END 2023-07-17 19:17 | DRG 472 ==
LOC: SDC 07:51 → SURG B 11:27 → OBSVTOIN 07-15 06:36
PROVIDERS: ADMIT Neurological Surgery; ATTEND Neurological Surgery
PROC: 0RG10A0 Fusion of Cervical Vertebral Joint with Interbody Fusion Device, Anterior Approach, Anterior Column, Open Approach (ICD-10-PCS; principal; 2023-07-14)
PROC: 00NW0ZZ Release Cervical Spinal Cord, Open Approach (ICD-10-PCS; 2023-07-14)
PROC: 0RT30ZZ Resection of Cervical Vertebral Disc, Open Approach (ICD-10-PCS; 2023-07-14)
PROC: 3E033XZ Introduction of Vasopressor into Peripheral Vein, Percutaneous Approach (ICD-10-PCS; 2023-07-14)
PROC: 3E03329 Introduction of Other Anti-infective into Peripheral Vein, Percutaneous Approach (ICD-10-PCS; 2023-07-14)
DX: M48.02 Spinal stenosis, cervical region (principal); G95.9 Disease of spinal cord, unspecified; I10 Essential (primary) hypertension; E78.5 Hyperlipidemia, unspecified; I25.10 Atherosclerotic heart disease of native coronary artery without angina pectoris; Z95.1 Presence of aortocoronary bypass graft; I48.91 Unspecified atrial fibrillation; Z88.0 Allergy status to penicillin; Z88.2 Allergy status to sulfonamides; Z79.899 Other long term (current) drug therapy; Z90.710 Acquired absence of both cervix and uterus; Z96.0 Presence of urogenital implants; Z90.49 Acquired absence of other specified parts of digestive tract; Z98.890 Other specified postprocedural states
CPT/HCPCS: 96365; 96376; C1713; G0378; J1100; J1885; J1956; J2272; J2405; J2704; J2765; J3010; J3490; J7050; S0028

== ENCOUNTER 2023-08-02 21:59 | Observation (INO) | payer OTHER ==
[2023-08-02] MEDS ORDERED: Calcium Carbonate 500 MG ChewTAB PO PRN (23:44)
[2023-08-02] MEDS ORDERED: Senokot S 8.6-50 MG TAB PO PRN (23:44)
[2023-08-02] MEDS ORDERED: Polyethylene Glycol 3350 17 GM Packet PO PRN (23:45)
[2023-08-03 00:17] VITALS: BMI 30.6
[2023-08-03 01:23] LABS: Troponin I Less than 0.010 ng/mL (< 0.028)
[2023-08-03 03:58] LABS: #Monocytes 0.7 thou/uL (0.11-0.59); #Neutrophils 8.9 thou/uL (1.40-6.50); %Basophils 0.2 % (0.0-1.0); %Lymphocytes 15.1 % (21.0-51.0); %Monocytes 6.2 % (0.0-10.0); %Neutrophils 78.2 % (42.0-75.0); Hemoglobin 13.6 g/dL (12.0-16.0); Mean Corpuscular HGB CONC 32.4 g/dL (32.0-36.0); Mean Corpuscular Hemoglobin 36.6 pg (27.0-31.0); Mean Corpuscular Volume 112.9 fl (78.0-98.0); Mean Platelet Volume 8.3 fL (7.4-10.4); Platelet Count 283 10x3/uL (130-400); Red Blood Cell (RBC) Count 3.72 mill/uL (4.20-5.40); White Blood Cell (WBC) Count 11.4 10x3/uL (4.8-10.8)
[2023-08-03 04:23] LABS: Anion Gap 17 mmol/L (10-20); BUN (Urea Nitrogen) 11 mg/dL (9.8-20.1); Calc. Creatinine Clearance 115 mL/min (70-130); Calcium 8.6 mg/dL (7.8-10.44); Carbon Dioxide 23 mmol/L (23-31); Chloride 98 mmol/L (98-107); Estimated GFR 99; Glucose 96 mg/dL (80-115); Sodium 134 mmol/L (136-145)
[2023-08-03 04:29] LABS: Troponin I Less than 0.010 ng/mL (< 0.028)
[2023-08-03] MEDS: Levothyroxine Sodium 50 MCG TAB PO SCH (05:27)
[2023-08-03] MEDS: Gabapentin 300 MG CAP PO SCH ×3 (10:22→20:44)
[2023-08-03] MEDS: Magnesium Oxide 400 MG TAB PO SCH (10:23)
[2023-08-03] MEDS: Spironolactone 25 MG TAB PO SCH (10:23)
[2023-08-03] MEDS: busPIRone HCl 10 MG TAB PO SCH ×3 (10:23→20:44)
[2023-08-03] MEDS: DULoxetine 60 MG CAP PO SCH (10:23)
[2023-08-03] MEDS: Famotidine 20 MG TAB PO SCH ×2 (10:23→20:44)
[2023-08-03] MEDS: Furosemide 40 MG TAB PO SCH (10:23)
[2023-08-03] MEDS: dilTIAZem CD 180 MG CAP PO SCH (10:23)
[2023-08-03] MEDS ORDERED: Azithromycin 250 MG TAB PO SCH (13:30)
[2023-08-03] MEDS ORDERED: predniSONE 20 MG TAB PO SCH (13:30)
[2023-08-03] MEDS: Acetaminophen 325 MG TAB PO PRN ×2 (16:14→23:31)
[2023-08-03] MEDS: Donepezil HCl 10 MG TAB PO SCH (20:44)
[2023-08-03] MEDS: Atorvastatin Calcium 40 MG TAB PO SCH (20:45)
[2023-08-03] MEDS: Zolpidem Tartrate 5 MG TAB PO SCH (20:45)
[2023-08-04] MEDS: Levothyroxine Sodium 50 MCG TAB PO SCH (05:04)
[2023-08-04 05:29] LABS: #Monocytes 0.5 thou/uL (0.11-0.59); #Neutrophils 5.2 thou/uL (1.40-6.50); %Basophils 0.4 % (0.0-1.0); %Lymphocytes 23.6 % (21.0-51.0); %Neutrophils 68.9 % (42.0-75.0); Hematocrit 37.5 % (36.0-47.0); Hemoglobin 12.7 g/dL (12.0-16.0); Mean Corpuscular HGB CONC 33.9 g/dL (32.0-36.0); Mean Corpuscular Hemoglobin 36.9 pg (27.0-31.0); Mean Platelet Volume 8.6 fL (7.4-10.4); Platelet Count 280 10x3/uL (130-400); RBC Distribution Width 13.6 % (11.5-14.5); Red Blood Cell (RBC) Count 3.44 mill/uL (4.20-5.40); White Blood Cell (WBC) Count 7.5 10x3/uL (4.8-10.8)
[2023-08-04 05:48] LABS: Anion Gap 15 mmol/L (10-20); BUN (Urea Nitrogen) 9 mg/dL (9.8-20.1); Calc. Creatinine Clearance 125 mL/min (70-130); Carbon Dioxide 27 mmol/L (23-31); Chloride 95 mmol/L (98-107); Estimated GFR 100; Glucose 113 mg/dL (80-115); Potassium 3.7 mmol/L (3.5-5.1); Sodium 133 mmol/L (136-145)
[2023-08-04] MEDS ORDERED: predniSONE 20 MG TAB PO SCH (08:00)
[2023-08-04] MEDS: Gabapentin 300 MG CAP PO SCH ×3 (08:46→21:14)
[2023-08-04] MEDS: Famotidine 20 MG TAB PO SCH ×2 (08:47→21:14)
[2023-08-04] MEDS: Magnesium Oxide 400 MG TAB PO SCH (08:47)
[2023-08-04] MEDS: dilTIAZem CD 180 MG CAP PO SCH (08:48)
[2023-08-04] MEDS: Furosemide 40 MG TAB PO SCH (08:48)
[2023-08-04] MEDS: DULoxetine 60 MG CAP PO SCH (08:48)
[2023-08-04] MEDS: busPIRone HCl 10 MG TAB PO SCH ×3 (08:48→21:13)
[2023-08-04] MEDS: Spironolactone 25 MG TAB PO SCH (08:48)
[2023-08-04] MEDS: Ondansetron ODT 4 MG TAB PO PRN ×2 (08:49→17:56)
[2023-08-04] MEDS ORDERED: Azithromycin 250 MG TAB PO SCH (09:00)
[2023-08-04] MEDS: Acetaminophen 325 MG TAB PO PRN ×2 (14:18→21:14)
[2023-08-04 19:25] VITALS: BP 112/64; TEMP 98
[2023-08-04] MEDS: Donepezil HCl 10 MG TAB PO SCH (21:13)
[2023-08-04] MEDS: Atorvastatin Calcium 40 MG TAB PO SCH (21:14)
[2023-08-04] MEDS: Zolpidem Tartrate 5 MG TAB PO SCH (21:15)
== END 2023-08-04 21:40 | disposition home or self-care (01) ==
LOC: 2NO 23:07
PROVIDERS: ADMIT Student in an Organized Health Care Education/Training Program; ATTEND Internal Medicine
DX: R07.9 Chest pain, unspecified (principal); E03.9 Hypothyroidism, unspecified; I48.91 Unspecified atrial fibrillation; I10 Essential (primary) hypertension; E78.5 Hyperlipidemia, unspecified; I25.10 Atherosclerotic heart disease of native coronary artery without angina pectoris; Z88.0 Allergy status to penicillin; Z88.2 Allergy status to sulfonamides; Z79.01 Long term (current) use of anticoagulants; Z79.890 Hormone replacement therapy; Z79.899 Other long term (current) drug therapy; Z95.1 Presence of aortocoronary bypass graft; Z90.49 Acquired absence of other specified parts of digestive tract
CPT/HCPCS: 36415; 71045; 80048; 80053; 83605; 83690; 83880; 84484; 85025; 93005; 94760; G0378; J7512; Q0162

== ENCOUNTER 2023-09-14 22:56 | Emergency (ER) | payer OTHER ==
[2023-09-15 00:18] LABS: Bilirubin Negative (Negative); Blood, Urine Trace (Negative); Glucose, Urine (Dipstick) Negative (Negative); Ketone, Urine 40 mg/dL (Negative); Leukocyte Small (Negative); Nitrite Positive (Negative); Protein, Urine (Dipstick) Trace mg/dL (Neg-Trace); Urobilinogen 0.2 mg/dL (Less than 2)
[2023-09-15 00:27] LABS: Bacteria/HPF 4+ HPF (None Seen); CAUTI Indications for Culture Dysuria,urgency,freq; Calcium Oxalate Crystals Rare HPF (None Seen); RBC/HPF 0-3 HPF (0-3); Squamous Epithelial 0-3 HPF (0-3); WBC/HPF Greater than 50 HPF (0-3)
[2023-09-15 00:43] LABS: Clarity Clear (Clear)
[2023-09-15 00:46] LABS: Urine Culture Reflex Yes Yes
[2023-09-15 00:58] LABS: #Monocytes 0.8 thou/uL (0.11-0.59); #Neutrophils 4.8 thou/uL (1.40-6.50); %Basophils 0.2 % (0.0-1.0); %Eosinophils 0.4 % (0.0-10.0); %Lymphocytes 35.6 % (21.0-51.0); %Monocytes 8.7 % (0.0-10.0); %Neutrophils 53.8 % (42.0-75.0); Hemoglobin 12.8 g/dL (12.0-16.0); Mean Corpuscular HGB CONC 33.7 g/dL (32.0-36.0); Mean Corpuscular Hemoglobin 38.2 pg (27.0-31.0); Mean Corpuscular Volume 113.4 fl (78.0-98.0); Mean Platelet Volume 8.5 fL (7.4-10.4); Platelet Count 212 10x3/uL (130-400); RBC Distribution Width 13.3 % (11.5-14.5); Red Blood Cell (RBC) Count 3.35 mill/uL (4.20-5.40); White Blood Cell (WBC) Count 8.9 10x3/uL (4.8-10.8)
[2023-09-15] MEDS ORDERED: cefTRIAXone (ROCEPHIN) 1 GM VIAL ONE (01:05)
[2023-09-15 01:25] LABS: Troponin I Less than 0.010 ng/mL (< 0.028)
[2023-09-15 01:27] LABS: ALT (SGPT) 13 U/L (8-55); AST (SGOT) 11 U/L (5-34); Albumin 3.3 g/dL (3.4-4.8); Alkaline Phosphatase 44 U/L (40-110); Anion Gap 12 mmol/L (10-20); BUN (Urea Nitrogen) 8 mg/dL (9.8-20.1); Bilirubin, Total 0.4 mg/dL (0.2-1.2); Calc. Creatinine Clearance 0 mL/min (70-130); Calcium 8.3 mg/dL (7.8-10.44); Carbon Dioxide 25 mmol/L (23-31); Chloride 102 mmol/L (98-107); Estimated GFR 103; Globulin 1.9 g/dL (2.4-3.5); Glucose 73 mg/dL (80-115); Lipase 4 U/L (8-78); Magnesium 1.8 mg/dL (1.6-2.6); Potassium 3.9 mmol/L (3.5-5.1); Protein, Total 5.2 g/dL (5.8-8.1); Sodium 135 mmol/L (136-145)
[2023-09-15 01:32] LABS: CellaVision Operator ID lab.sh2; Macrocytosis MODERATE=16-30 cells HPF (0-5); Platelet Adequacy Comment Platelets Normal; Polychromasia SLIGHT = 2-3 cells HPF (0-2)
[2023-09-15] MEDS ORDERED: Ondansetron PF 4 MG/2 ML Vial ONE (03:33)
== END 2023-09-15 11:07 ==
LOC: ERS 22:56
DX: N39.0 Urinary tract infection, site not specified (principal); I13.0 Hypertensive heart and chronic kidney disease with heart failure and stage 1 through stage 4 chronic kidney disease, or unspecified chronic kidney disease; I50.9 Heart failure, unspecified; N18.9 Chronic kidney disease, unspecified; K21.9 Gastro-esophageal reflux disease without esophagitis; E03.9 Hypothyroidism, unspecified; I48.91 Unspecified atrial fibrillation; Z79.899 Other long term (current) drug therapy; Z79.01 Long term (current) use of anticoagulants
CPT/HCPCS: 36415; 71045; 74177; 80053; 81001; 83605; 83690; 83735; 83880; 84484; 85025; 87040; 87077; 87086; 87186; 93005; 96374; 96375; J0696; J2405; Q9967

== ENCOUNTER 2023-10-11 13:39 | Inpatient (IN) | payer OTHER ==
[2023-10-11 14:27] LABS: #Monocytes 0.7 thou/uL (0.11-0.59); #Neutrophils 5.2 thou/uL (1.40-6.50); %Basophils 0.5 % (0.0-1.0); %Eosinophils 0.5 % (0.0-10.0); %Lymphocytes 28.2 % (21.0-51.0); %Monocytes 7.9 % (0.0-10.0); %Neutrophils 62.3 % (42.0-75.0); Hematocrit 42.4 % (36.0-47.0); Hemoglobin 14.1 g/dL (12.0-16.0); Mean Corpuscular HGB CONC 33.3 g/dL (32.0-36.0); Mean Corpuscular Hemoglobin 38.2 pg (27.0-31.0); Mean Corpuscular Volume 114.9 fl (78.0-98.0); Mean Platelet Volume 8.3 fL (7.4-10.4); Platelet Count 279 10x3/uL (130-400); RBC Distribution Width 14.6 % (11.5-14.5); Red Blood Cell (RBC) Count 3.69 mill/uL (4.20-5.40); White Blood Cell (WBC) Count 8.3 10x3/uL (4.8-10.8)
[2023-10-11 14:44] LABS: ALT (SGPT) 13 U/L (8-55); AST (SGOT) 20 U/L (5-34); Albumin 2.9 g/dL (3.4-4.8); Alkaline Phosphatase 62 U/L (40-110); Anion Gap 15 mmol/L (10-20); BUN (Urea Nitrogen) 5 mg/dL (9.8-20.1); Bilirubin, Total 0.3 mg/dL (0.2-1.2); Calc. Creatinine Clearance 0 mL/min (70-130); Calcium 8.1 mg/dL (7.8-10.44); Carbon Dioxide 22 mmol/L (23-31); Chloride 101 mmol/L (98-107); Estimated GFR 102; Globulin 2.4 g/dL (2.4-3.5); Glucose 69 mg/dL (80-115); Potassium 3.4 mmol/L (3.5-5.1); Protein, Total 5.3 g/dL (5.8-8.1); Sodium 135 mmol/L (136-145)
[2023-10-11 14:46] LABS: CellaVision Operator ID LAB.MJL; Macrocytosis SLIGHT = 6-15 cells HPF (0-5); Platelet Adequacy Comment Platelets Normal; Polychromasia SLIGHT = 2-3 cells HPF (0-2)
[2023-10-11 16:19] LABS: Bilirubin Negative (Negative); Blood, Urine Large (Negative); Glucose, Urine (Dipstick) Negative (Negative); Ketone, Urine 40 mg/dL (Negative); Leukocyte Small (Negative); Nitrite Negative (Negative); Protein, Urine (Dipstick) Negative (Neg-Trace); Specific Gravity, Urine 1.015 (1.005-1.030); Urobilinogen 0.2 mg/dL (Less than 2)
[2023-10-11 16:44] LABS: Clarity Clear (Clear)
[2023-10-11 16:45] LABS: Bacteria/HPF 1+ HPF (None Seen); CAUTI Indications for Culture Dysuria,urgency,freq; RBC/HPF 21-50 HPF (0-3); Squamous Epithelial 0-3 HPF (0-3); WBC/HPF 21-50 HPF (0-3)
[2023-10-11 16:46] LABS: Urine Culture Reflex Yes Yes
[2023-10-11 18:22] VITALS: BMI 30.2
[2023-10-11] MEDS: Famotidine 20 MG TAB PO SCH (19:45)
[2023-10-11] MEDS: Ondansetron ODT 4 MG TAB PO PRN (22:33)
[2023-10-12 06:55] LABS: #Basophils 0.1 thou/uL (0.0-0.2); #Monocytes 1.1 thou/uL (0.11-0.59); #Neutrophils 5.6 thou/uL (1.40-6.50); %Basophils 0.7 % (0.0-1.0); %Eosinophils 0.3 % (0.0-10.0); %Lymphocytes 28.8 % (21.0-51.0); %Monocytes 11.6 % (0.0-10.0); %Neutrophils 57.9 % (42.0-75.0); Hematocrit 43.1 % (36.0-47.0); Hemoglobin 14.3 g/dL (12.0-16.0); Mean Corpuscular HGB CONC 33.2 g/dL (32.0-36.0); Mean Corpuscular Hemoglobin 37.2 pg (27.0-31.0); Mean Corpuscular Volume 112.2 fl (78.0-98.0); Mean Platelet Volume 8.6 fL (7.4-10.4); Platelet Count 252 10x3/uL (130-400); RBC Distribution Width 14.1 % (11.5-14.5); Red Blood Cell (RBC) Count 3.84 mill/uL (4.20-5.40); White Blood Cell (WBC) Count 9.6 10x3/uL (4.8-10.8)
[2023-10-12 07:05] LABS: Gentamicin, Random 3.3 ug/mL (See Comment)
[2023-10-12 07:13] LABS: Anion Gap 19 mmol/L (10-20); BUN (Urea Nitrogen) 6 mg/dL (9.8-20.1); Calc. Creatinine Clearance 127 mL/min (70-130); Calcium 8.1 mg/dL (7.8-10.44); Carbon Dioxide 20 mmol/L (23-31); Chloride 102 mmol/L (98-107); Estimated GFR 101; Glucose 65 mg/dL (80-115); Potassium 3.1 mmol/L (3.5-5.1); Sodium 138 mmol/L (136-145)
[2023-10-12] MEDS ORDERED: Senokot S 8.6-50 MG TAB PO PRN (07:55)
[2023-10-12] MEDS ORDERED: Potassium Chloride 20 MEQ TAB PO SCH (08:00)
[2023-10-12] MEDS ORDERED: Non-Formulary Item 1 EACH (Estradiol [Estradiol] 0.5 MG Tablet) PO SCH (09:00)
[2023-10-12] MEDS ORDERED: Non-Formulary Item 1 EACH (Diltiazem Hcl [Diltiazem 24hr Er] 180 MG Cap.Sa.24h) PO SCH (09:00)
[2023-10-12] MEDS ORDERED: Non-Formulary Item 1 EACH (Omeprazole [Omeprazole] 20 MG Capsule.Dr) PO SCH (09:00)
[2023-10-12] MEDS ORDERED: Isosorbide Mononitrate 30 MG ER.TAB PO SCH (09:00)
[2023-10-12] MEDS ORDERED: Non-Formulary Item 1 EACH (Buspirone Hcl [Buspirone Hcl] 30 MG Tablet) PO SCH (09:00)
[2023-10-12] MEDS: Estradiol 1 MG TAB PO SCH (09:47)
[2023-10-12] MEDS: DULoxetine 60 MG CAP PO SCH (09:47)
[2023-10-12] MEDS: Furosemide 40 MG TAB PO SCH (09:47)
[2023-10-12] MEDS: Isosorbide Mononitrate 60 MG ER.TAB PO SCH (09:47)
[2023-10-12] MEDS: busPIRone HCl 5 MG TAB PO SCH ×3 (09:47→19:52)
[2023-10-12] MEDS: Ranolazine 500 MG ER.TAB PO SCH ×2 (09:47→19:53)
[2023-10-12] MEDS: dilTIAZem CD 180 MG CAP PO SCH (09:47)
[2023-10-12] MEDS: Apixaban 5 MG TAB PO SCH ×2 (09:47→19:51)
[2023-10-12] MEDS: Lidocaine 4% Patch TP SCH (09:48)
[2023-10-12] MEDS: Gabapentin 300 MG CAP PO SCH ×3 (09:48→19:53)
[2023-10-12] MEDS: Famotidine 20 MG TAB PO SCH ×2 (09:51→19:52)
[2023-10-12] MEDS: Acetaminophen 325 MG TAB PO PRN ×2 (09:59→19:54)
[2023-10-12] MEDS: Spironolactone 25 MG TAB PO SCH (10:00)
[2023-10-12] MEDS: traZODone HCl 50 MG TAB PO SCH ×2 (10:00→19:54)
[2023-10-12] MEDS ORDERED: Vancomycin HCl 125 MG/5 ML (BATCHED) UDCUP PO SCH (12:00)
[2023-10-12] MEDS: Saccharomyces boulardii 250 MG CAP PO SCH (12:49)
[2023-10-12] MEDS ORDERED: Gentamicin Sulfate 400 MG in Sodium Chloride 0.9% 100 ML IVPB SCH (18:00)
[2023-10-12] MEDS: Atorvastatin Calcium 40 MG TAB PO SCH (19:51)
[2023-10-12] MEDS: Donepezil HCl 10 MG TAB PO SCH (19:52)
[2023-10-12] MEDS: Ezetimibe 10 MG TAB PO SCH (19:52)
[2023-10-12] MEDS: Fidaxomicin 200 MG TAB PO SCH (19:53)
[2023-10-12] MEDS: Zolpidem Tartrate 5 MG TAB PO SCH (19:54)
[2023-10-12] MEDS: Transdermal Patch Removal TOP SCH (19:59)
[2023-10-12] MEDS ORDERED: ESZOPICLONE 2 MG PO SCH (21:00)
[2023-10-12 22:26] LABS: Campy jejuni + coli by PCR Negative (Negative); STEC Shiga Toxin 1+2 Negative (Negative); Salmonella spp. by PCR Negative (Negative); Shigella spp + EIEC by PCR Negative (Negative)
[2023-10-13] MEDS: Acetaminophen 325 MG TAB PO PRN ×2 (05:01→17:51)
[2023-10-13] MEDS: Levothyroxine Sodium 50 MCG TAB PO SCH (05:01)
[2023-10-13] MEDS: busPIRone HCl 5 MG TAB PO SCH ×3 (08:56→20:53)
[2023-10-13] MEDS: Fidaxomicin 200 MG TAB PO SCH ×2 (08:56→20:53)
[2023-10-13] MEDS: dilTIAZem CD 180 MG CAP PO SCH (08:56)
[2023-10-13] MEDS: traZODone HCl 50 MG TAB PO SCH ×2 (08:56→20:54)
[2023-10-13] MEDS: Estradiol 1 MG TAB PO SCH (08:56)
[2023-10-13] MEDS: Apixaban 5 MG TAB PO SCH ×2 (08:56→20:52)
[2023-10-13] MEDS: Ranolazine 500 MG ER.TAB PO SCH ×2 (08:56→20:54)
[2023-10-13] MEDS: Furosemide 40 MG TAB PO SCH (08:57)
[2023-10-13] MEDS: Lidocaine 4% Patch TP SCH (08:57)
[2023-10-13] MEDS: Saccharomyces boulardii 250 MG CAP PO SCH (08:57)
[2023-10-13] MEDS: DULoxetine 60 MG CAP PO SCH (08:57)
[2023-10-13] MEDS: Gabapentin 300 MG CAP PO SCH ×3 (08:57→20:53)
[2023-10-13] MEDS: Ferrous Sulfate 325 MG TAB PO SCH (08:57)
[2023-10-13] MEDS: Isosorbide Mononitrate 60 MG ER.TAB PO SCH (08:57)
[2023-10-13] MEDS: Famotidine 20 MG TAB PO SCH ×2 (08:57→20:53)
[2023-10-13] MEDS: Spironolactone 25 MG TAB PO SCH (08:57)
[2023-10-13] MEDS ORDERED: Non-Formulary Item 1 EACH (Ferrous Sulfate [Ferrous Sulfate] 325 MG Tab) PO SCH (09:00)
[2023-10-13 11:29] LABS: #Basophils 0.1 thou/uL (0.0-0.2); #Eosinphils 0.1 thou/uL (0.0-0.7); #Neutrophils 8.2 thou/uL (1.40-6.50); %Basophils 0.4 % (0.0-1.0); %Eosinophils 0.4 % (0.0-10.0); %Lymphocytes 19.7 % (21.0-51.0); %Monocytes 8.2 % (0.0-10.0); %Neutrophils 70.9 % (42.0-75.0); Hematocrit 39.7 % (36.0-47.0); Hemoglobin 13.6 g/dL (12.0-16.0); Mean Corpuscular HGB CONC 34.3 g/dL (32.0-36.0); Mean Corpuscular Volume 110.9 fl (78.0-98.0); Mean Platelet Volume 8.1 fL (7.4-10.4); Platelet Count 275 10x3/uL (130-400); RBC Distribution Width 14.4 % (11.5-14.5); Red Blood Cell (RBC) Count 3.58 mill/uL (4.20-5.40); White Blood Cell (WBC) Count 11.6 10x3/uL (4.8-10.8)
[2023-10-13 12:30] LABS: Anion Gap 17 mmol/L (10-20); BUN (Urea Nitrogen) Less than 4 mg/dL (9.8-20.1); Calc. Creatinine Clearance 121 mL/min (70-130); Calcium 8.1 mg/dL (7.8-10.44); Carbon Dioxide 27 mmol/L (23-31); Chloride 98 mmol/L (98-107); Estimated GFR 100; Glucose 92 mg/dL (80-115); Sodium 139 mmol/L (136-145)
[2023-10-13 12:37] LABS: Potassium 2.6 mmol/L (3.5-5.1)
[2023-10-13] MEDS ORDERED: Potassium Chloride 20 MEQ TAB PO SCH ×2 (12:45→17:00)
[2023-10-13] MEDS: Potassium Chloride 20 MEQ in Premix 1 BAG IVPB SCH ×2 (13:18→14:45)
[2023-10-13] MEDS: Atorvastatin Calcium 40 MG TAB PO SCH (20:52)
[2023-10-13] MEDS: Ezetimibe 10 MG TAB PO SCH (20:53)
[2023-10-13] MEDS: Donepezil HCl 10 MG TAB PO SCH (20:53)
[2023-10-13] MEDS: Zolpidem Tartrate 5 MG TAB PO SCH (20:54)
[2023-10-13] MEDS: Transdermal Patch Removal TOP SCH (21:01)
[2023-10-14 05:00] LABS: #Basophils 0.1 thou/uL (0.0-0.2); #Eosinphils 0.1 thou/uL (0.0-0.7); #Monocytes 1.2 thou/uL (0.11-0.59); #Neutrophils 3.5 thou/uL (1.40-6.50); %Basophils 0.8 % (0.0-1.0); %Eosinophils 1.6 % (0.0-10.0); %Monocytes 13.7 % (0.0-10.0); %Neutrophils 41.1 % (42.0-75.0); Hematocrit 36.3 % (36.0-47.0); Hemoglobin 12.3 g/dL (12.0-16.0); Mean Corpuscular HGB CONC 33.9 g/dL (32.0-36.0); Mean Corpuscular Hemoglobin 37.4 pg (27.0-31.0); Mean Corpuscular Volume 110.3 fl (78.0-98.0); Mean Platelet Volume 8.4 fL (7.4-10.4); Platelet Count 274 10x3/uL (130-400); RBC Distribution Width 14.5 % (11.5-14.5); Red Blood Cell (RBC) Count 3.29 mill/uL (4.20-5.40); White Blood Cell (WBC) Count 8.5 10x3/uL (4.8-10.8)
[2023-10-14 05:32] LABS: Anion Gap 10 mmol/L (10-20); BUN (Urea Nitrogen) Less than 4 mg/dL (9.8-20.1); Calc. Creatinine Clearance 123 mL/min (70-130); Calcium 7.7 mg/dL (7.8-10.44); Carbon Dioxide 35 mmol/L (23-31); Chloride 97 mmol/L (98-107); Estimated GFR 100; Glucose 88 mg/dL (80-115); Magnesium 1.5 mg/dL (1.6-2.6); Potassium 2.8 mmol/L (3.5-5.1); Sodium 139 mmol/L (136-145)
[2023-10-14] MEDS: Levothyroxine Sodium 50 MCG TAB PO SCH (06:15)
[2023-10-14] MEDS: Acetaminophen 325 MG TAB PO PRN (06:15)
[2023-10-14] MEDS ORDERED: Potassium Chloride 20 MEQ TAB PO SCH (08:15)
[2023-10-14] MEDS ORDERED: Magnesium Sulfate 4 GM in Sodium Chloride 0.9% 250 ML 250 ML IVPB SCH (08:15)
[2023-10-14] MEDS ORDERED: Magnesium Sulfate In Water 4 GM in Premix 1 BAG IVPB SCH ×2 (08:15→11:00)
[2023-10-14] MEDS: Isosorbide Mononitrate 60 MG ER.TAB PO SCH (08:41)
[2023-10-14] MEDS: Fidaxomicin 200 MG TAB PO SCH ×2 (08:41→22:11)
[2023-10-14] MEDS: busPIRone HCl 5 MG TAB PO SCH ×3 (08:41→21:00)
[2023-10-14] MEDS: Lidocaine 4% Patch TP SCH (08:41)
[2023-10-14] MEDS: Ranolazine 500 MG ER.TAB PO SCH ×2 (08:41→22:11)
[2023-10-14] MEDS: Gabapentin 300 MG CAP PO SCH ×3 (08:41→21:00)
[2023-10-14] MEDS: traZODone HCl 50 MG TAB PO SCH ×2 (08:42→22:12)
[2023-10-14] MEDS: Famotidine 20 MG TAB PO SCH ×2 (08:42→22:13)
[2023-10-14] MEDS: Spironolactone 25 MG TAB PO SCH (08:43)
[2023-10-14] MEDS: dilTIAZem CD 180 MG CAP PO SCH (08:43)
[2023-10-14] MEDS: Saccharomyces boulardii 250 MG CAP PO SCH (08:43)
[2023-10-14] MEDS: Estradiol 1 MG TAB PO SCH (08:43)
[2023-10-14] MEDS: DULoxetine 60 MG CAP PO SCH (08:43)
[2023-10-14] MEDS: Apixaban 5 MG TAB PO SCH ×2 (08:43→22:13)
[2023-10-14] MEDS ORDERED: FLU VACC QS2023-24(6MOS UP)/PF 60 MCG/0.5 ML SYRINGE IM ONE (09:00)
[2023-10-14] MEDS ORDERED: HYDROcodone/Acetaminophen 5/325 mg Tablet PO SCH (09:30)
[2023-10-14] MEDS: Potassium Chloride 20 MEQ TAB PO SCH (18:12)
[2023-10-14] MEDS: HYDROcodone/Acetaminophen 5/325 mg Tablet PO PRN (18:16)
[2023-10-14] MEDS: Zolpidem Tartrate 5 MG TAB PO SCH (22:11)
[2023-10-14] MEDS: Ezetimibe 10 MG TAB PO SCH (22:12)
[2023-10-14] MEDS: Atorvastatin Calcium 40 MG TAB PO SCH (22:13)
[2023-10-14] MEDS: Donepezil HCl 10 MG TAB PO SCH (22:14)
[2023-10-14] MEDS: Transdermal Patch Removal TOP SCH (22:16)
[2023-10-15] MEDS: HYDROcodone/Acetaminophen 5/325 mg Tablet PO PRN ×3 (04:29→20:00)
[2023-10-15] MEDS: Levothyroxine Sodium 50 MCG TAB PO SCH (04:30)
[2023-10-15 06:36] LABS: Anion Gap 14 mmol/L (10-20); BUN (Urea Nitrogen) Less than 4 mg/dL (9.8-20.1); Calc. Creatinine Clearance 134 mL/min (70-130); Calcium 7.6 mg/dL (7.8-10.44); Carbon Dioxide 32 mmol/L (23-31); Chloride 97 mmol/L (98-107); Estimated GFR 102; Glucose 81 mg/dL (80-115); Magnesium 2.1 mg/dL (1.6-2.6); Potassium 3.7 mmol/L (3.5-5.1); Sodium 139 mmol/L (136-145)
[2023-10-15] MEDS: Saccharomyces boulardii 250 MG CAP PO SCH (08:17)
[2023-10-15] MEDS: Gabapentin 300 MG CAP PO SCH ×3 (08:17→19:53)
[2023-10-15] MEDS: Ranolazine 500 MG ER.TAB PO SCH ×2 (08:17→19:54)
[2023-10-15] MEDS: Estradiol 1 MG TAB PO SCH (08:18)
[2023-10-15] MEDS: busPIRone HCl 5 MG TAB PO SCH ×3 (08:18→19:52)
[2023-10-15] MEDS: Apixaban 5 MG TAB PO SCH ×2 (08:18→19:52)
[2023-10-15] MEDS: traZODone HCl 50 MG TAB PO SCH ×2 (08:18→19:54)
[2023-10-15] MEDS: DULoxetine 60 MG CAP PO SCH (08:18)
[2023-10-15] MEDS: Potassium Chloride 20 MEQ TAB PO SCH ×2 (08:18→17:58)
[2023-10-15] MEDS: Spironolactone 25 MG TAB PO SCH (08:18)
[2023-10-15] MEDS: Famotidine 20 MG TAB PO SCH ×2 (08:18→19:53)
[2023-10-15] MEDS: Ferrous Sulfate 325 MG TAB PO SCH (08:19)
[2023-10-15] MEDS: Isosorbide Mononitrate 60 MG ER.TAB PO SCH (08:19)
[2023-10-15] MEDS: dilTIAZem CD 180 MG CAP PO SCH (08:19)
[2023-10-15] MEDS: Fidaxomicin 200 MG TAB PO SCH ×2 (08:19→19:53)
[2023-10-15] MEDS: Lidocaine 4% Patch TP SCH (08:22)
[2023-10-15] MEDS: Ondansetron ODT 4 MG TAB PO PRN (12:12)
[2023-10-15] MEDS: Atorvastatin Calcium 40 MG TAB PO SCH (19:52)
[2023-10-15] MEDS: Donepezil HCl 10 MG TAB PO SCH (19:53)
[2023-10-15] MEDS: Ezetimibe 10 MG TAB PO SCH (19:53)
[2023-10-15] MEDS: Zolpidem Tartrate 5 MG TAB PO SCH (19:54)
[2023-10-15] MEDS: Transdermal Patch Removal TOP SCH (20:08)
[2023-10-16] MEDS: HYDROcodone/Acetaminophen 5/325 mg Tablet PO PRN ×2 (01:50→10:55)
[2023-10-16] MEDS: Levothyroxine Sodium 50 MCG TAB PO SCH (06:00)
[2023-10-16 07:54] VITALS: BP 117/79; TEMP 97.8
[2023-10-16] MEDS: Gabapentin 300 MG CAP PO SCH (08:33)
[2023-10-16] MEDS: Potassium Chloride 20 MEQ TAB PO SCH (08:34)
[2023-10-16] MEDS: Estradiol 1 MG TAB PO SCH (08:34)
[2023-10-16] MEDS: Ranolazine 500 MG ER.TAB PO SCH (08:34)
[2023-10-16] MEDS: dilTIAZem CD 180 MG CAP PO SCH (08:34)
[2023-10-16] MEDS: traZODone HCl 50 MG TAB PO SCH (08:34)
[2023-10-16] MEDS: busPIRone HCl 5 MG TAB PO SCH (08:34)
[2023-10-16] MEDS: Fidaxomicin 200 MG TAB PO SCH (08:34)
[2023-10-16] MEDS: Spironolactone 25 MG TAB PO SCH (08:34)
[2023-10-16] MEDS: Apixaban 5 MG TAB PO SCH (08:34)
[2023-10-16] MEDS: DULoxetine 60 MG CAP PO SCH (08:35)
[2023-10-16] MEDS: Furosemide 40 MG TAB PO SCH (08:35)
[2023-10-16] MEDS: Isosorbide Mononitrate 60 MG ER.TAB PO SCH (08:35)
[2023-10-16] MEDS: Saccharomyces boulardii 250 MG CAP PO SCH (08:35)
[2023-10-16] MEDS: Famotidine 20 MG TAB PO SCH (08:35)
[2023-10-16] MEDS: Lidocaine 4% Patch TP SCH (09:31)
[2023-10-16] MEDS: Ondansetron ODT 4 MG TAB PO PRN (10:55)
== END 2023-10-16 13:18 | DRG 372 ==
LOC: ERS 13:39 → T4-B 18:11
PROVIDERS: ADMIT Internal Medicine; ATTEND Internal Medicine
DX: A04.72 Enterocolitis due to Clostridium difficile, not specified as recurrent (principal); E87.1 Hypo-osmolality and hyponatremia; R53.81 Other malaise; E78.5 Hyperlipidemia, unspecified; I10 Essential (primary) hypertension; I25.10 Atherosclerotic heart disease of native coronary artery without angina pectoris; E03.9 Hypothyroidism, unspecified; R19.7 Diarrhea, unspecified; F41.9 Anxiety disorder, unspecified; F03.90 Unspecified dementia, unspecified severity, without behavioral disturbance, psychotic disturbance, mood disturbance, and anxiety; F32.A Depression, unspecified; E87.6 Hypokalemia; E83.42 Hypomagnesemia; I48.0 Paroxysmal atrial fibrillation; Z98.890 Other specified postprocedural states; Z88.2 Allergy status to sulfonamides; Z88.0 Allergy status to penicillin; Z79.899 Other long term (current) drug therapy; Z79.890 Hormone replacement therapy; Z90.49 Acquired absence of other specified parts of digestive tract; Z95.1 Presence of aortocoronary bypass graft
CPT/HCPCS: 36415; 71045; 80048; 80053; 80170; 81001; 83605; 83735; 85025; 87040; 87077; 87086; 87186; 87324; 87449; 87505; 93005; 96365; J1580; J3475; J3480; J3490; Q0162

== ENCOUNTER 2023-10-26 21:37 | Inpatient (IN) | payer OTHER ==
[2023-10-26] MEDS ORDERED: cefTRIAXone (ROCEPHIN) 1 GM VIAL ONE (22:14)
[2023-10-26] MEDS ORDERED: Sodium Chloride 0.9% 100 ML ONE (22:14)
[2023-10-26] MEDS ORDERED: NOREPINEPHRINE 8 MG/250 ML-D5W 250 ML ONE (22:18)
[2023-10-26] MEDS ORDERED: Ondansetron PF 4 MG/2 ML Vial ONE (23:15)
[2023-10-26 23:34] LABS: #Monocytes 1.9 thou/uL (0.11-0.59); #Neutrophils 19.6 thou/uL (1.40-6.50); %Basophils 0.1 % (0.0-1.0); %Lymphocytes 8.1 % (21.0-51.0); %Monocytes 8.1 % (0.0-10.0); %Neutrophils 82.6 % (42.0-75.0); Hematocrit 42.4 % (36.0-47.0); Hemoglobin 14.5 g/dL (12.0-16.0); Mean Corpuscular HGB CONC 34.2 g/dL (32.0-36.0); Mean Corpuscular Hemoglobin 37.8 pg (27.0-31.0); Mean Corpuscular Volume 110.4 fl (78.0-98.0); Mean Platelet Volume 9.2 fL (7.4-10.4); Platelet Count 278 10x3/uL (130-400); RBC Distribution Width 14.3 % (11.5-14.5); Red Blood Cell (RBC) Count 3.84 mill/uL (4.20-5.40); White Blood Cell (WBC) Count 23.7 10x3/uL (4.8-10.8)
[2023-10-26 23:48] LABS: INR-International Normal Ratio 1.1; PTT 29.5 sec (22.9-36.1); Prothrombin Time 14.9 sec (12.0-14.7)
[2023-10-26 23:53] LABS: D-Dimer Test Less than 0.27 *mcg/mL (0.27-0.43)
[2023-10-26 23:59] LABS: ALT (SGPT) 16 U/L (8-55); AST (SGOT) 31 U/L (5-34); Albumin 2.8 g/dL (3.4-4.8); Alkaline Phosphatase 50 U/L (40-110); Anion Gap 25 mmol/L (10-20); BUN (Urea Nitrogen) 6 mg/dL (9.8-20.1); Bilirubin, Total 0.4 mg/dL (0.2-1.2); Calc. Creatinine Clearance 0 mL/min (70-130); Calcium 8.1 mg/dL (7.8-10.44); Carbon Dioxide 15 mmol/L (23-31); Chloride 100 mmol/L (98-107); Estimated GFR 50; Globulin 2.5 g/dL (2.4-3.5); Glucose 189 mg/dL (80-115); Lipase 12 U/L (8-78); Magnesium 1.6 mg/dL (1.6-2.6); Protein, Total 5.3 g/dL (5.8-8.1); Sodium 137 mmol/L (136-145)
[2023-10-27 00:02] LABS: Potassium 2.5 mmol/L (3.5-5.1)
[2023-10-27 00:04] LABS: Bacteria/HPF 3+ HPF (None Seen); Bilirubin Negative (Negative); Blood, Urine 3+ (Negative); CAUTI Indications for Culture Alt mental st,lethar; Clarity Turbid (Clear); Glucose, Urine (Dipstick) 200 mg/dL (Negative); Ketone, Urine 150 mg/dL (Negative); Leukocyte 500 Leu/uL (Negative); Nitrite 1+ (Negative); Protein, Urine (Dipstick) 100 mg/dL (Neg-Trace); RBC/HPF Greater than 50 HPF (0-3); Specific Gravity, Urine 1.018 (1.002-1.036); Squamous Epithelial 0-3 HPF (0-3); WBC/HPF Greater than 50 HPF (0-3); Yeast-Budding 4+ HPF (None Seen); Yeast-Hyphae 2+ HPF (None Seen)
[2023-10-27 00:05] LABS: Troponin I 1.481 ng/mL (< 0.028)
[2023-10-27 00:11] LABS: Urine Culture Reflex Yes Yes
[2023-10-27] MEDS ORDERED: Vancomycin 1 GM/200 ML (FROZEN) BAG ONE (00:47)
[2023-10-27] MEDS ORDERED: NS 0.9% w/ 40 MEQ KCL 1,000 ML IV SCH (01:15)
[2023-10-27] MEDS ORDERED: Linezolid 600 MG in Premix 1 BAG IVPB SCH (01:30)
[2023-10-27] MEDS ORDERED: Pantoprazole 40 MG VIAL IVP SCH (01:45)
[2023-10-27] MEDS: Sodium Chloride 0.9% 1,000 ML IV SCH ×4 (02:04→23:13)
[2023-10-27] MEDS: Linezolid 600 MG in Premix 1 BAG IVPB SCH ×2 (02:05→13:09)
[2023-10-27] MEDS ORDERED: Pantoprazole 40 MG VIAL ONE (02:06)
[2023-10-27 02:15] VITALS: BMI 26.9
[2023-10-27] MEDS ORDERED: Cefepime 2 GM VIAL ONE (03:49)
[2023-10-27] MEDS ORDERED: Sodium Chloride 0.9% 100 ML ONE (03:49)
[2023-10-27] MEDS: Cefepime 2 GM in Sodium Chloride 0.9% 100 ML IVPB SCH ×2 (03:50→15:34)
[2023-10-27] MEDS ORDERED: Acetaminophen 650 MG Suppository PR PRN (05:33)
[2023-10-27] MEDS ORDERED: Acetaminophen 325 MG TAB PO PRN (05:33)
[2023-10-27] MEDS ORDERED: Ondansetron ODT 4 MG TAB PO PRN (05:33)
[2023-10-27] MEDS ORDERED: Ondansetron PF 4 MG/2 ML Vial ONE (05:43)
[2023-10-27] MEDS ORDERED: Glucagon 1 MG/ML KIT IM PRN ×2 (05:53→08:51)
[2023-10-27] MEDS ORDERED: Dextrose 50% Abboject 50 ML SYRINGE SLOW IVP PRN ×2 (05:53→08:51)
[2023-10-27] MEDS ORDERED: Dextrose 5% in Water 1,000 ML IV PRN ×2 (05:53→08:51)
[2023-10-27] MEDS ORDERED: Albumin 25% 25 GM/100 ML BOT IVPB SCH (06:00)
[2023-10-27] MEDS ORDERED: Electrolyte Replacement Protocol 1 EACH FS SCH (06:00)
[2023-10-27] MEDS ORDERED: Magnesium 2 GM/50 ML(in water) 2 GM in Premix 1 BAG IVPB SCH (06:00)
[2023-10-27] MEDS: Ondansetron PF 4 MG/2 ML Vial IVP PRN ×3 (06:04→20:30)
[2023-10-27] MEDS ORDERED: Magnesium 2 GM/50 ML BAG (IN WATER) ONE (06:08)
[2023-10-27 06:34] LABS: #Neutrophils 20.5 thou/uL (1.40-6.50); %Basophils 0.2 % (0.0-1.0); %Lymphocytes 9.3 % (21.0-51.0); %Monocytes 8.1 % (0.0-10.0); %Neutrophils 81.4 % (42.0-75.0); Hematocrit 41.7 % (36.0-47.0); Hemoglobin 14.1 g/dL (12.0-16.0); Mean Corpuscular HGB CONC 33.8 g/dL (32.0-36.0); Mean Corpuscular Hemoglobin 37.1 pg (27.0-31.0); Mean Corpuscular Volume 109.7 fl (78.0-98.0); Mean Platelet Volume 9.5 fL (7.4-10.4); Platelet Count 275 10x3/uL (130-400); RBC Distribution Width 14.2 % (11.5-14.5); White Blood Cell (WBC) Count 25.2 10x3/uL (4.8-10.8)
[2023-10-27] MEDS ORDERED: Aspirin 325 MG TAB PO SCH (06:34)
[2023-10-27] MEDS ORDERED: Aspirin 325 MG TAB ONE (06:45)
[2023-10-27 06:57] LABS: Anion Gap 20 mmol/L (10-20); BUN (Urea Nitrogen) 6 mg/dL (9.8-20.1); CK (CPK) 132 U/L (29-168); Calc. Creatinine Clearance 73 mL/min (70-130); Calcium 7.7 mg/dL (7.8-10.44); Carbon Dioxide 18 mmol/L (23-31); Chloride 100 mmol/L (98-107); Estimated GFR 66; Glucose 223 mg/dL (80-115); Magnesium 1.6 mg/dL (1.6-2.6); Potassium 2.7 mmol/L (3.5-5.1); Sodium 135 mmol/L (136-145)
[2023-10-27 07:00] LABS: Troponin I 1.636 ng/mL (< 0.028)
[2023-10-27] MEDS ORDERED: Potassium Chloride 20 MEQ TAB PO SCH (08:00)
[2023-10-27] MEDS ORDERED: FIDAXOMICIN 200 MG PO SCH (09:00)
[2023-10-27] MEDS ORDERED: NOREPINEPHRINE 8 MG/250 ML-D5W 250 ML IVPB SCH (09:00)
[2023-10-27] MEDS: Apixaban 5 MG TAB PO SCH ×3 (09:02→20:46)
[2023-10-27] MEDS: Pantoprazole 40 MG VIAL IVP SCH (09:06)
[2023-10-27] MEDS: HumaLOG 300 UNITS/3 ML VIAL SC PRN ×2 (09:25→16:50)
[2023-10-27] MEDS: Potassium Chloride 40 MEQ in Premix 1 BAG IVPB SCH ×2 (09:26→13:08)
[2023-10-27 09:38] LABS: SARS-CoV-2 NAA Rapid Test Not Detected (NotDetected)
[2023-10-27 11:03] LABS: Legionella Urinary Ag Negative (Negative); Strep pneumo Urine Ag NEGATIVE (NEGATIVE)
[2023-10-27 12:01] LABS: Critical Call Chem Troponin I RESULT DECREASING; Troponin I 1.578 ng/mL (< 0.028)
[2023-10-27 17:51] LABS: Potassium 3.2 mmol/L (3.5-5.1)
[2023-10-27] MEDS: Atorvastatin Calcium 40 MG TAB PO SCH ×2 (20:30→20:49)
[2023-10-27] MEDS ORDERED: Promethazine HCl 25 MG/ML VIAL IM SCH (22:45)
[2023-10-28] MEDS ORDERED: Albumin 25% 25 GM/100 ML BOT IVPB SCH (02:15)
[2023-10-28] MEDS ORDERED: Morphine 2 MG/ML VIAL SLOW IVP SCH ×2 (02:15→15:30)
[2023-10-28] MEDS: Cefepime 2 GM in Sodium Chloride 0.9% 100 ML IVPB SCH (02:42)
[2023-10-28] MEDS: Ondansetron PF 4 MG/2 ML Vial IVP PRN (02:43)
[2023-10-28] MEDS: Linezolid 600 MG in Premix 1 BAG IVPB SCH ×2 (02:44→14:54)
[2023-10-28 04:52] LABS: #Monocytes 0.9 thou/uL (0.11-0.59); #Neutrophils 14.8 thou/uL (1.40-6.50); %Basophils 0.1 % (0.0-1.0); %Lymphocytes 7.2 % (21.0-51.0); %Monocytes 5.4 % (0.0-10.0); %Neutrophils 86.5 % (42.0-75.0); Hematocrit 33.1 % (36.0-47.0); Hemoglobin 11.2 g/dL (12.0-16.0); Mean Corpuscular HGB CONC 33.8 g/dL (32.0-36.0); Mean Corpuscular Hemoglobin 37.3 pg (27.0-31.0); Mean Corpuscular Volume 110.3 fl (78.0-98.0); Mean Platelet Volume 9.4 fL (7.4-10.4); Platelet Count 194 10x3/uL (130-400); RBC Distribution Width 14.8 % (11.5-14.5); White Blood Cell (WBC) Count 17.2 10x3/uL (4.8-10.8)
[2023-10-28 05:21] LABS: Anion Gap 16 mmol/L (10-20); BUN (Urea Nitrogen) 6 mg/dL (9.8-20.1); Calc. Creatinine Clearance 89 mL/min (70-130); Calcium 8.2 mg/dL (7.8-10.44); Carbon Dioxide 22 mmol/L (23-31); Chloride 104 mmol/L (98-107); Estimated GFR 83; Glucose 180 mg/dL (80-115); Magnesium 1.9 mg/dL (1.6-2.6); Sodium 139 mmol/L (136-145)
[2023-10-28 05:27] LABS: Potassium 2.5 mmol/L (3.5-5.1)
[2023-10-28 05:44] LABS: Anisocytosis SLIGHT = 6-15 cells HPF (0-5); CellaVision Operator ID lab.sh2; Macrocytosis MARKED = >30 cells HPF (0-5); Platelet Adequacy Comment Platelets Normal; Polychromasia SLIGHT = 2-3 cells HPF (0-2)
[2023-10-28] MEDS ORDERED: Magnesium 2 GM/50 ML(in water) 2 GM in Premix 1 BAG IVPB SCH ×2 (05:45→07:00)
[2023-10-28] MEDS: Potassium Chloride 40 MEQ in Premix 1 BAG IVPB SCH ×2 (05:56→08:54)
[2023-10-28] MEDS: HumaLOG 300 UNITS/3 ML VIAL SC PRN ×3 (06:00→16:43)
[2023-10-28] MEDS ORDERED: Amiodarone 150 MG, Admixture Fee 1 EACH in Dextrose 5% in Water 100 ML IVPB SCH (07:00)
[2023-10-28 07:35] LABS: Phosphorus 1.8 mg/dL (2.3-4.7)
[2023-10-28] MEDS: Amiodarone 450 MG, Admixture Fee 1 EACH in Dextrose 5% in Water 250 ML IVPB SCH ×2 (07:44→18:13)
[2023-10-28] MEDS ORDERED: Potassium Phosphate 15 MMOL in Sodium Chloride 0.9% 100 ML IVPB SCH (08:00)
[2023-10-28] MEDS: Pantoprazole 40 MG VIAL IVP SCH (08:53)
[2023-10-28] MEDS: Apixaban 5 MG TAB PO SCH (08:53)
[2023-10-28] MEDS ORDERED: Aspirin 81 mg Enteric Coated Tablet PO SCH (09:00)
[2023-10-28] MEDS ORDERED: FLU VACC QS2023-24(6MOS UP)/PF 60 MCG/0.5 ML SYRINGE IM ONE (09:00)
[2023-10-28] MEDS: Albumin 25% 25 GM/100 ML BOT IVPB SCH ×2 (11:26→16:14)
[2023-10-28] MEDS ORDERED: Phenylephrine 40 MG/NS 250 ML 40 MG in Premix 1 BAG IVPB SCH (11:30)
[2023-10-28] MEDS ORDERED: Meropenem 1 GM in Sodium Chloride 0.9% 100 ML IVPB SCH ×3 (13:15→21:00)
[2023-10-28] MEDS ORDERED: Furosemide 20 MG TAB PO SCH (13:15)
[2023-10-28] MEDS: NOREPINEPHRINE 8 MG/250 ML-D5W 250 ML IVPB SCH ×2 (14:20→18:13)
[2023-10-28 14:56] LABS: Potassium 4.6 mmol/L (3.5-5.1); Sodium 136 mmol/L (136-145)
[2023-10-28 14:57] LABS: Anion Gap 22 mmol/L (10-20); BUN (Urea Nitrogen) 6 mg/dL (9.8-20.1); Calc. Creatinine Clearance 88 mL/min (70-130); Carbon Dioxide 16 mmol/L (23-31); Chloride 103 mmol/L (98-107); Estimated GFR 82; Glucose 289 mg/dL (80-115); Magnesium 2.6 mg/dL (1.6-2.6); Phosphorus 3.2 mg/dL (2.3-4.7)
[2023-10-28] MEDS ORDERED: Vasopressin 20 UNITS in Sodium Chloride 0.9% 50 ML IV PRN (15:53)
[2023-10-28] MEDS ORDERED: Hydrocortisone Sod Succ/PF 100 mg/2 ml Vial IVP SCH ×2 (16:00→23:59)
[2023-10-28] MEDS ORDERED: Lactated Ringer's 500 ML IV SCH (16:15)
[2023-10-28] MEDS ORDERED: Furosemide 20 MG/2 ML VIAL SLOW IVP SCH (18:00)
[2023-10-28] MEDS: Morphine 2 MG/ML VIAL SLOW IVP PRN (18:41)
[2023-10-28] MEDS: Lorazepam 2 MG/ML VIAL SLOW IVP PRN (18:41)
[2023-10-29] MEDS: Lorazepam 2 MG/ML VIAL SLOW IVP PRN (10:08)
[2023-10-29] MEDS: Morphine 2 MG/ML VIAL SLOW IVP PRN (10:08)
[2023-10-29 12:03] VITALS: BP 86/58; TEMP 98.6
== END 2023-10-29 16:36 | disposition hospice, inpatient (51) | DRG 698 ==
LOC: ERS 21:37 → ERHOLD 10-27 00:40 → CCU 10-27 07:39 → T4-B 10-28 20:59
PROVIDERS: ADMIT Family Medicine; ATTEND Emergency Medicine
PROC: 06HY33Z Insertion of Infusion Device into Lower Vein, Percutaneous Approach (ICD-10-PCS; principal; 2023-10-27)
PROC: 3E03329 Introduction of Other Anti-infective into Peripheral Vein, Percutaneous Approach (ICD-10-PCS; 2023-10-27)
PROC: 3E033XZ Introduction of Vasopressor into Peripheral Vein, Percutaneous Approach (ICD-10-PCS; 2023-10-27)
PROC: 30233J1 Transfusion of Nonautologous Serum Albumin into Peripheral Vein, Percutaneous Approach (ICD-10-PCS; 2023-10-27)
DX: T83.511A Infection and inflammatory reaction due to indwelling urethral catheter, initial encounter (principal); A41.9 Sepsis, unspecified organism; G93.41 Metabolic encephalopathy; J69.0 Pneumonitis due to inhalation of food and vomit; R65.21 Severe sepsis with septic shock; I21.A1 Myocardial infarction type 2; I13.0 Hypertensive heart and chronic kidney disease with heart failure and stage 1 through stage 4 chronic kidney disease, or unspecified chronic kidney disease; N17.9 Acute kidney failure, unspecified; N39.0 Urinary tract infection, site not specified; F03.90 Unspecified dementia, unspecified severity, without behavioral disturbance, psychotic disturbance, mood disturbance, and anxiety; M45.9 Ankylosing spondylitis of unspecified sites in spine; I50.9 Heart failure, unspecified; I25.10 Atherosclerotic heart disease of native coronary artery without angina pectoris; K21.9 Gastro-esophageal reflux disease without esophagitis; E03.9 Hypothyroidism, unspecified; F41.9 Anxiety disorder, unspecified; E86.0 Dehydration; E78.5 Hyperlipidemia, unspecified; N18.9 Chronic kidney disease, unspecified; R33.9 Retention of urine, unspecified; E87.6 Hypokalemia; E83.42 Hypomagnesemia; Z66 Do not resuscitate; F31.9 Bipolar disorder, unspecified; I48.0 Paroxysmal atrial fibrillation; L89.92 Pressure ulcer of unspecified site, stage 2; Z86.73 Personal history of transient ischemic attack (TIA), and cerebral infarction without residual deficits; Z98.890 Other specified postprocedural states; Z90.49 Acquired absence of other specified parts of digestive tract; Z95.1 Presence of aortocoronary bypass graft; Z88.0 Allergy status to penicillin; Z88.2 Allergy status to sulfonamides; Z79.899 Other long term (current) drug therapy; Z79.01 Long term (current) use of anticoagulants; Z11.52 Encounter for screening for COVID-19
CPT/HCPCS: 36415; 36416; 70450; 71045; 74177; 80048; 80053; 81001; 82533; 82550; 83605; 83690; 83735; 83880; 84100; 84145; 84443; 84484; 85025; 85379; 85610; 85730; 87040; 87077; 87086; 87186; 87449; 87804; 87899; 93005; 93010; C9113; J0282; J0692; J0696; J1720; J1815; J2020; J2060; J2185; J2272; J2405; J2550; J3370-JW; J3475; J3480; J3490; J7050; J7070; J7120; P9047; Q0162; Q9967; U0002

== ENCOUNTER 2023-10-29 17:12 | Inpatient (IN) | payer OTHER ==
[2023-10-29 17:48] VITALS: BMI 28.6
[2023-10-29] MEDS ORDERED: Bisacodyl 10 MG SUPP PR PRN (18:07)
[2023-10-29] MEDS ORDERED: Ondansetron PF 4 MG/2 ML Vial IVP PRN (18:15)
[2023-10-29] MEDS ORDERED: Scopolamine 1 mg/72 hour Patch TOP PRN (18:15)
[2023-10-29] MEDS ORDERED: Acetaminophen 650 MG Suppository PR PRN (18:15)
[2023-10-29] MEDS ORDERED: Haloperidol Lactate 5 MG/ML VIAL SLOW IVP PRN (18:15)
[2023-10-30] MEDS: Morphine 2 MG/ML VIAL SLOW IVP PRN ×2 (09:29→17:41)
[2023-10-30] MEDS: Lorazepam 2 MG/ML VIAL SLOW IVP PRN (09:33)
[2023-10-31] MEDS: Morphine 2 MG/ML VIAL SLOW IVP PRN ×2 (12:38→13:08)
[2023-10-31] MEDS: Lorazepam 2 MG/ML VIAL SLOW IVP PRN ×3 (12:38→23:32)
[2023-10-31] MEDS: GLYCOPYRROLATE/PF 0.2 MG/ML VIAL SLOW IVP PRN ×2 (12:44→21:34)
[2023-10-31] MEDS: Morphine 4 MG/ML VIAL SLOW IVP SCH ×4 (14:16→21:31)
[2023-10-31] MEDS: Morphine 4 MG/ML VIAL SLOW IVP PRN ×3 (14:53→23:32)
[2023-11-01] MEDS: Morphine 4 MG/ML VIAL SLOW IVP SCH ×2 (02:52→06:43)
[2023-11-01] MEDS: GLYCOPYRROLATE/PF 0.2 MG/ML VIAL SLOW IVP PRN (04:41)
[2023-11-01] MEDS: Lorazepam 2 MG/ML VIAL SLOW IVP PRN (04:41)
[2023-11-01 08:38] VITALS: BP 39/29; TEMP 103
== END 2023-11-01 09:25 | disposition expired | DRG 951 ==
LOC: T4-B 17:12
PROVIDERS: ADMIT Family Medicine; ATTEND Family Medicine
DX: Z51.5 Encounter for palliative care (principal); R65.21 Severe sepsis with septic shock; A41.9 Sepsis, unspecified organism; J69.0 Pneumonitis due to inhalation of food and vomit; I13.0 Hypertensive heart and chronic kidney disease with heart failure and stage 1 through stage 4 chronic kidney disease, or unspecified chronic kidney disease; N39.0 Urinary tract infection, site not specified; I48.91 Unspecified atrial fibrillation; R33.9 Retention of urine, unspecified; N18.9 Chronic kidney disease, unspecified; E78.5 Hyperlipidemia, unspecified; E03.9 Hypothyroidism, unspecified; I25.10 Atherosclerotic heart disease of native coronary artery without angina pectoris; I50.9 Heart failure, unspecified; K21.9 Gastro-esophageal reflux disease without esophagitis; F03.90 Unspecified dementia, unspecified severity, without behavioral disturbance, psychotic disturbance, mood disturbance, and anxiety; Z88.0 Allergy status to penicillin; Z88.2 Allergy status to sulfonamides
CPT/HCPCS: J1630; J2060; J2270; J2272; J3490